=== PATIENT | female | born 1950 ===

== ENCOUNTER 2018-03-17 02:06 | Outpatient (CLI) | payer MEDICARE, BC, SELFPAY ==
[2018-03-17 13:16] LABS: CREATININE 0.72 mg/dL (0.55-1.02)
== END 2018-03-17 02:26 ==
PROVIDERS: PCP Internal Medicine; Visit Provider Nurse Practitioner Family
DX: D15.0 Benign neoplasm of thymus (principal); Z13.89 Encounter for screening for other disorder
CPT/HCPCS: 36415; 82565

== ENCOUNTER 2018-03-20 00:21 | Outpatient (CLI) | payer MEDICARE, BC, SELFPAY ==
--- NOTE | 2018-03-20 13:45 | DI.MAMMO_ITS ---
SYMPTOMS/DIAGNOSIS: SCREENING, Z12.31 MAMMOGRAMS: Mammograms were interpreted according to the usual protocol including computer analysis with CAD system, tomosynthesis and C view imaging. Comparison is with the prior examinations. No suspicious masses or microcalcifications are seen. There is no definite evidence of malignancy. IMPRESSION: Negative mammogram. Routine screening is recommended. Category 1, breast density C. MQSA ASSESSMENT OF FINDINGS: Negative. Category 1. Patient will receive a letter notifying them of these results. Bi-RADS category C. The breasts are heterogeneously dense, which may obscure small masses.
--- NOTE | 2018-03-20 15:00 | DI.CT_ITS ---
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 The requisition says ? thymoma. 70 cc Omnipaque 350 was injected intravenously for this examination. The lungs remain clear. There is no pleural effusion. There is no evidence of a pulmonary, hilar or mediastinal mass specifically the anterior mediastinum where the thymus is usually located, appears unremarkable as it did on the prior study of 03/14/2017. The heart is normal. There is no pleural effusion. There is no hilar or mediastinal adenopathy. The trachea is normal as visualized. There is no evidence of a mediastinal mass. The bony structures are unremarkable. SUMMARY: No interval change. No evidence of a mass involving the mediastinum. No evidence of adenopathy. If there is further specific clinical question regarding the status of this patient then further assessment with MRI would be appropriate.
[2018-03-20] MEDS: Omnipaque 350 MG/ML 100 ML BTL IJ (15:04)
== END 2018-03-20 00:41 ==
PROVIDERS: PCP Internal Medicine; Visit Provider Nurse Practitioner Family
DX: Z12.31 Encounter for screening mammogram for malignant neoplasm of breast (principal); D15.0 Benign neoplasm of thymus
CPT/HCPCS: 77063; 77067; 71260; J3490

== ENCOUNTER 2019-02-15 12:45 | Outpatient (CLI) | payer MEDICARE, BC, SELFPAY ==
--- NOTE | 2019-02-15 14:00 | DI.RAD_ITS ---
EXAM: XR CHEST 2V PA AND LATERAL INDICATION: COUGH X 3 WEEKS, R05. COMPARISON: CT chest w from 03/20/2018 CT chest w from 03/20/2018 TECHNIQUE: 2D digital imaging was performed. FINDINGS: The cardiac and mediastinal contours have a normal appearance. Lungs appear clear throughout. No inf iltrate or effusion is seen. IMPRESSION: Negative chest x-ray.
== END 2019-02-15 13:05 ==
PROVIDERS: PCP Internal Medicine; Visit Provider Nurse Practitioner Family
DX: R05 Cough (principal)
CPT/HCPCS: 71046

== ENCOUNTER 2019-03-13 16:05 | Outpatient (REF) | payer MEDICARE, BC, SELFPAY ==
[2019-03-13 21:12] LABS: CREATININE 0.83 mg/dL (0.55-1.02); Calculated LDL 169 mg/dL; Cholesterol 267 mg/dL (<200); HDL Cholesterol 73 mg/dL (40-60); TSH (W/Ref FT4) 1.22 uIU/mL (0.36-3.74); Triglyceride 129 mg/dL (<150)
[2019-03-13 21:49] LABS: Abs Immature Grans 0.01 k/cumm (0.0-0.09); Absolute Basophil Count 0.04 k/cumm (0.0-0.2); Absolute Eosinophil Count 0.23 k/cumm (0.0-0.7); Absolute Lymphocyte Count 2.77 k/cumm (1.2-3.4); Absolute Monocyte Count 0.62 k/cumm (0.11-0.7); Basophils % 0.4; Eosinophils % 2.3; HCT 41.1 % (36.0-46.0); HGB 13.8 g/dL (12.0-15.5); Immature Grans % 0.1; Lymphocytes % 28.1; Mean Corp. HGB Concentration 33.6 g/dL (32.0-36.0); Mean Corpuscular Hemoglobin 30.6 pg (27.0-33.0); Mean Corpuscular Volume 91.1 fL (80-95); Mean Platelet Volume 9.6 fL (8.0-11.0); Monocytes % 6.3; Neutrophils % 62.8; Platelet Count 373 x1000/uL (130-400); RBC 4.51 m/cumm (4.00-5.20); RBC Distribution Width 13.3 % (11.7-14.6); White Blood Cell Count 9.87 k/cumm (4.4-10.8)
== END 2019-03-13 16:25 ==
LOC: NCHCN 16:05
PROVIDERS: PCP Internal Medicine; Visit Provider Nurse Practitioner Family
DX: F41.8 Other specified anxiety disorders (principal); E66.9 Obesity, unspecified; K30 Functional dyspepsia
CPT/HCPCS: 80061; 82565; 84443; 85025

== ENCOUNTER 2019-03-23 02:15 | Outpatient (CLI) | payer MEDICARE, BC, SELFPAY ==
--- NOTE | 2019-03-23 08:55 | DI.CT_ITS ---
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 COMPARISON: CHEST WITH CONTRAST from 03/14/2017 CT chest w from 03/20/2018 FINDINGS: Images obtained through the upper abdomen show unremarkable appearance of visualized portions of [place] er, spleen and pancreas. Gallbladder has been surgically removed. No biliary dilatation seen. Visuali zed adrenals and left kidney unremarkable. There is no evidence of pulmonary embolic disease. No thoracic aortic abnormality. No significant med iastinal or hilar adenopathy. Tracheobronchial tree is unremarkable. No pleural effusion. There are 2 nodules associated with the minor fissure on the right, the largest measuring about 6 mil limeters mean diameter. Prior chest CT of March 2018 did show this pulmonary nodule but it was not well visualized on that examination and probably measured about 6 by 3-4 millimeters in diameter. Si x-month follow-up chest CT suggested to evaluate stability and rule out neoplasm according to [employer] protocol. Note is also made of a tiny calcified right middle lobe nodule. The patient requested that her sternum be evaluated and there is no abnormality seen involving the st ernum or anterior ribs. 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 IMPRESSION: 1.No mediastinal mass. No sternal mass. 2. Noncalcified nodules are seen associated with the right minor fissure and a follow-up chest CT is recommended in 6 months to evaluate stability as described above.
[2019-03-23] MEDS: Omnipaque 350 MG/ML 100 ML BTL IJ (09:13)
== END 2019-03-23 02:35 ==
PROVIDERS: PCP Internal Medicine; Visit Provider Nurse Practitioner Family
DX: D15.0 Benign neoplasm of thymus (principal); J98.4 Other disorders of lung
CPT/HCPCS: 71260; J3490

== ENCOUNTER 2019-04-05 13:39 | Outpatient (REF) | payer MEDICARE, BC, SELFPAY | END 2019-04-05 13:59 | LOC: NCHCN 13:39 | PROVIDERS: PCP Internal Medicine; Visit Provider Nurse Practitioner Family | DX: D15.0 Benign neoplasm of thymus (principal); R13.10 Dysphagia, unspecified; J98.4 Other disorders of lung | CPT/HCPCS: 83519 ==

== ENCOUNTER 2019-04-12 01:26 | Outpatient (CLI) | payer MEDICARE, BC, SELFPAY ==
--- NOTE | 2019-04-12 13:04 | DI.MAMMO_ITS ---
EXAM: MG MAMMO SCREENING CLINICAL HISTORY: SCREENING Z12.31 TECHNIQUE: Mammograms were interpreted according to the usual protocol including computer analysis w [place] CAD system, tomosynthesis and C-view imaging. COMPARISON: Current examination is compared with previous examinations including March 2018 FINDINGS: Breasts are heterogeneously dense. No dominant mass or clumped microcalcification identified in [facility] breast. The current examination is compared with previous examinations including March 2018 an d there has been no significant interval change in appearance in comparison with previous studies. IMPRESSION: No specific evidence of malignancy at this time. Routine screening examinations are suggested at yea rly intervals in this age group according to the ACS/ACR guidelines. Category 1, breast density josephine sonaly C. BI-RADS Cat 1 - Negative Breast Density - Category C - Heterogeneously dense
== END 2019-04-12 01:46 ==
PROVIDERS: PCP Internal Medicine; Visit Provider Nurse Practitioner Family
DX: Z12.31 Encounter for screening mammogram for malignant neoplasm of breast (principal)
CPT/HCPCS: 77063; 77067

== ENCOUNTER 2019-08-01 17:08 | Emergency (ER) | payer MEDICARE, BC, SELFPAY | END 2019-08-03 04:00 | LOC: ER 17:19 | PROVIDERS: PCP Internal Medicine | DX: R69 Illness, unspecified (principal) ==

== ENCOUNTER 2019-08-01 17:11 | Observation (INO) | payer MEDICARE, BC, SELFPAY ==
[2019-08-01] VITALS (44 sets, daily range): BP systolic 136–161; BP diastolic 77–102; PULSE 82–113; RESP 11–25; TEMP 36.5–37.1; O2SAT 94–98
--- NOTE | 2019-08-01 17:15 | ED.GENADUL_ITS ---
Discharge Plan Disposition Patient Disposition: [facility] INPATIENT Condition: Poor Discharge Details Chief Complaint: AMS/LOC Clinical Impression: Altered mental status Primary Care Provider: Quan Stewart ED Provider: Yenni Lugo Home Meds and New Rx's Prescriptions: No Action trazodone 50 MG tablet 50 mg PO HS RF: 0 omeprazole 40 MG capsule,delayed release(DR/EC) 40 mg PO DAILY RF: 0 Zyrtec 10 MG capsule 10 mg PO HS RF: 0 naproxen sodium [Aleve] 220 MG capsule 660 mg PO BID PRNRF: 0 estradiol [Vagifem] 10 MCG tablet 10 mcg VG HS Qty: 24 RF: 6 Medical Decision Making <Servando Chatterjee DO - Last Filed: 08/01/19 18:19> EKG 17: 26 Rate 108, intervals normal, mild sinus tachycardia, minimal less than a millimeter ST depression in V3 and V4, no reciprocal elevations. No evidence of STEMI. Prior EKG from demonstrates that these are new findings. <JL Armendariz - Last Filed: 08/01/19 22:47> Patient is a pleasant 69-year-old female with past medical history of chronic cough, hiatal hernia. She is brought in by her for evaluation of altered mental status. reports around 1 PM they were working in the yard. He states that there hold her dog escape to begin running down the road. The patient subsequently went off of the dog. He describes her at a brisk walk. She did not fall or have any evidence of trauma. He reports that he she walked approximately quarter of a mile. It was after returning home with a dog that he began noticing altered mental status. States that she was repeating herself frequently. He describes memory loss. States that she seem to be suffering from short-term memory loss not remembering packages that had arrived today as well as being confused regarding long-term events. denies any recent medication changes. No alcohol intake. No [id number] medications used. No recent trauma. No history of seizures. Patient has not been evaluated by neurology historically per report. He denies any recent illness. No cough, fevers, chills. He denies endorsing any headaches or visual changes. Had not noticed any physical illness, deficits. On exam, patient appears nontoxic. Vital signs notable for tachycardia with a pulse of 103. She is notably confused with frequent repeating. She is oriented to person and place but not to time. Her neurologic exam is otherwise intact. Of note, she has normal [id number]-[id number], normal Romberg, normal strength, no cranial nerve deficits. She is full range of motion of her neck without any discomfort. She has no evidence of trauma. No pain to palpation about her head. No nuchal rigidity, no rash, appears nontoxic. Plan for imaging and laboratory evaluation. Imaging reviewed by radiologist: FINDINGS: Brain: No hemorrhage. No large vascular territory infarct. No mass effect. Ventricles: Normal. No ventriculomegaly. Bones/joints: Unremarkable. No acute fracture. Sinuses: Trace mucosal thickening of the right sphenoid sinus. Visualized sinuses are otherwise unremarkable. No fluid levels. Mastoid air cells: Visualized mastoid air cells are well aerated. Soft tissues: Unremarkable. IMPRESSION: No acute intracranial abnormality. CXR: FINDINGS: Lungs: Unremarkable. No consolidation. Pleural space: Unremarkable. No pleural effusion. No pneumothorax. Heart/Mediastinum: Unremarkable. No cardiomegaly. Bones/joints: Unremarkable. IMPRESSION: No acute findings. EKG was reviewed by Dr. Chatterjee. Please see his note regarding findings. Labs are reviewed. No leukocytosis. Normal CBC. Normal coagulation factors. Chemistry significant for mildly elevated glucose of 116. ammonia is less than 10. Initial troponin 0 0.05. TSH within normal limits. Urinalysis, UDS and VBG pending. Plan for CTA of head and neck. Plan for repeat troponin and ECG. UDS negative CTA reviewed by radiologist:. FINDINGS: Right common carotid artery: No stenosis. No dissection or occlusion. Right internal carotid artery: No stenosis of the extracranial segment. No dissection or occlusion. Right external carotid artery: No occlusion or stenosis of the origin. Right vertebral artery: No stenosis. No dissection or occlusion. Left common carotid artery: No stenosis. No dissection or occlusion. Left internal carotid artery: No stenosis of the extracranial segment. No dissection or occlusion. Left external carotid artery: No occlusion or stenosis of the origin. Left vertebral artery: No stenosis. No dissection or occlusion. Bones/joints: Degenerative changes of the cervical spine with multilevel bony spinal canal or neural foraminal stenosis. Soft tissues: Normal. No significant soft tissue swelling. Lungs: The visualized portions of the lung apices are normal. IMPRESSION: Tortuous cervical arteries are otherwise normal in caliber and appearance without flow-limiting stenosis or occlusion. Patient continues to be pleasant, very confused, comfortable. Called , Jordan, (cell), and let him know about the findings thus far. He is now reporting that her migraines, which he states she has had for years, have been increasing in frequency recently. Patient endorsing a mild headache, will give Tylenol for discomfort. Repeat ECG reviewed by Dr. Mcdaniels. Patient in NSR rate 95. No changes from previous. Repeat troponin 0.06. Considered LP, however, as the patients only deficit at this time is her confusion, she does not have symptoms suggestive of bleed or infection will hold off at this time. Will consult with hospitalist regarding admission for c onfusion. Dr. Davis evaluated the patient. She does appear to be slightly improved. She still does not remember meeting me but does know the year this time. He agrees to admission for persistent memory deficit. Discussed plan with patient , they agree with this. HPI <Servando Chatterjee DO - Last Filed: 08/01/19 18:19> General Date/Time Provider Initiated Documentation: 08/01/19 17:15 . Related Data Home Medications Medication Instructions Recorded Confirmed cetirizine [Zyrtec] 10 mg PO HS 12/31/15 08/01/19 omeprazole 40 mg PO DAILY tab-cap 12/31/15 08/01/19 trazodone 50 mg PO HS 12/31/15 08/01/19 naproxen sodium [Aleve] 660 mg PO BID PRN 01/13/16 08/01/19 estradiol [Vagifem] 10 mcg VG HS #24 tab 09/22/16 08/01/19 Allergies Allergy/AdvReac Type Severity Reaction Status Date / Time epinephrine AdvReac Severe Bradycardia Unverified 08/01/19 19:07 <JL Armendariz - Last Filed: 08/01/19 22:47> General Mode of arrival: ambulatory ( drove her in, she ambulated into department unassisted) . Limitations to Documentation: altered mental status . Information obtained by: patient, family () and RN notes reviewed . HPI Narrative: Patient is a pleasant 69 year old female presenting today with c/c of AMS. reports that at 1300 patient became suddenly confused. This is not her baseline, he reports no confusion at baseline. Came on after patient chased after her dog. No known trauma. No neurologic history per report. At this time, patient reports she feels off and associates this iwth feeling of confusion. She denies any pain, nausea, CP, SOB, visual changes, weakness, senstation changes. <JL Armendariz - Last Filed: 08/01/19 22:47> Unobtainable due to mental status [facility] <Servando Chatterjee DO - Last Filed: 08/01/19 18:19> Social History Smoking/Tobacco Use Status: Never Alcohol Intake: current Alcohol Intake frequency: holidays/special occasions only Drug use: Never Do you feel safe at home: Yes Do you feel safe in your relationship?: Yes <JL Armendariz - Last Filed: 08/01/19 22:47> Const General: cooperative, healthy appearing, uncomfortable, no acute distress, well developed and well groomed Nutritional Appearance: average body habitus and well nourished Orientation: alert, awake, oriented to person, oriented to place, not oriented to time and confused HENNE Head: normal to inspection, no palpable skull fracture, normocephalic and atraumatic Ears: hearing grossly normal bilaterally, external ears normal and TM's normal bilaterally General nose exam: external nose normal Mouth: oral mucosae normal and moist mucous membranes Throat: posterior oropharynx normal Eyes General: appearance normal, both eyes and all related structures Alignment and Position: alignment normal Periorbital: periorbital findings normal Eyelids: eyelids normal Sclera: sclerae normal Cornea: corneas normal Pupils: PERRL EOM: EOM intact bilaterally Neck Neck: normal visual inspection, full ROM, no lymphadenopathy and no meningeal signs Resp Effort & Inspection: normal respiratory effort, able to speak in complete sentences and no respiratory distress Auscultation: clear to auscultation bilaterally, no rales, no rhonchi and no wheezes Cardio Rate: regular rate Rhythm: regular rhythm Heart Sounds: S1 normal and S2 normal GI Inspection: normal to inspection and non-distended Palpation: soft, no hepatosplenomegaly, not firm, no guarding, not rigid and nontender Percussion: normal to percussion Auscultation: normal bowel sounds Back/Spine/Pelvis Cervical Spine: normal cervical lordosis and cervical ROM normal Skin General skin exam: no rashes or lesions noted Neuro General: patient alert, patient awake, oriented Patient Orientation: Person and Place, gait normal, tone normal, moves all extremities, normal light touch, pain and propioception, no meningeal signs, no focal motor deficits and CN's II-XI intact bilaterally Cranial Nerves: CN's II-XI intact bilaterally Cognition: normal cognition Speech: speech normal Gait: normal gait Motor: muscle tone normal throughout, strength 5/5 throughout, no pronator drift, no movement abnormalities noted and no fasciculations Sensory Exam: no sensory deficits noted DTR's: Rt Triceps: 1+, Lt Triceps: 1+, Rt Biceps: 1+, Lt Biceps: 1+, Rt Brachioradialis: 1+, Lt Brachioradialis: 1+, Rt Patellar: 1+, Lt Patellar: 1+, Rt Ankle: 1+ and Lt Ankle: 1+ Coordination: [id number]-hd-[id number] test normal, tepi-lf-jroi test normal, Romberg test normal, tandem gait normal and Does not sway with eyes open Extrem General: normal to inspection, capillary refill normal, no pedal edema and no calf tenderness Psych Appearance: grossly normal and well kempt Mental Status: mental status grossly normal Speech and Movement: speech and movement normal
[2019-08-01 17:45] LABS: Abs Immature Grans 0.02 k/cumm (0.0-0.09); Absolute Basophil Count 0.04 k/cumm (0.0-0.2); Absolute Eosinophil Count 0.06 k/cumm (0.0-0.7); Absolute Lymphocyte Count 1.96 k/cumm (1.2-3.4); Absolute Monocyte Count 0.45 k/cumm (0.11-0.7); Absolute Neutrophil Count 6.82 k/cumm (1.2-6.7); Basophils % 0.4; Eosinophils % 0.6; HCT 41.7 % (36.0-46.0); HGB 14.1 g/dL (12.0-15.5); Immature Grans % 0.2 %; Mean Corp. HGB Concentration 33.8 g/dL (32.0-36.0); Mean Corpuscular Hemoglobin 29.6 pg (27.0-33.0); Mean Corpuscular Volume 87.6 fL (80-95); Mean Platelet Volume 8.9 fL (8.0-11.0); Monocytes % 4.8; Platelet Count 323 x1000/uL (130-400); RBC 4.76 m/cumm (4.00-5.20); RBC Distribution Width 13.3 % (11.7-14.6); White Blood Cell Count 9.35 k/cumm (4.4-10.8)
--- NOTE | 2019-08-01 17:50 | DI.CT_ITS ---
EXAM: CT HEAD - STROKE PROTOCOL CLINICAL HISTORY: AMS. TECHNIQUE: Imaging Protocol: Axial computed tomography images with coronal and sagittal reformatted images were created and reviewed COMPARISON: No exams were available for comparison FINDINGS: The ventricular system is normal in appearance. No evidence of acute intracranial hemorrhage, mass effect, or midline shift. The orbital structures are unremarkable. The temporal bone structures appear intact. Calvarium: Normal. Visualized Paranasal sinuses/Mastoids: Clear. IMPRESSION: Normal cranial CT. RADIATION DOSE DELIVERED: Total DLP DATA REPOSITORY: All CT scans at this facility are submitted to the National Radiology Data Registry (NRDR) Dose Index Registry (DIR) with the [employer] (ACR). RADIATION OPTIMIZATION: All CT scans at this facility use at least one of these dose optimization te chniques: automated exposure control; mA and/or kV adjustment per patient size (includes targeted exa ms where dose is matched to clinical indication); or iterative reconstruction.
--- NOTE | 2019-08-01 17:52 | DI.RAD_ITS ---
EXAM: XR CHEST 2V PA LATERAL CLINICAL HISTORY: AMS TECHNIQUE: 2D digital imaging was performed. COMPARISON: XR CHEST 2V PA LATERAL from 02/15/2019 FINDINGS: The heart is not enlarged. The lungs are clear and well expanded. No pleural effusion seen. Mediastin al contours appear intact. IMPRESSION: Normal chest
[2019-08-01 17:54] LABS: Prothrombin Time 9.6 sec (9.3-11.0)
--- NOTE | 2019-08-01 18:00 | DI.CT_ITS ---
EXAM: CT BRAIN NECK CTA CLINICAL HISTORY: AMS TECHNIQUE: COMPARISON: CHEST FOR PULMONARY EMBOLUS from 02/14/2015 FINDINGS: CT angiography of the cervical cranial region was performed according to the usual protocol. Visuali zed lung apices are clear. Visualized portions of thoracic aorta and pulmonary arterial circulation are unremarkable. There is no evidence of a cervical mass or adenopathy. The tracheal laryngeal str uctures appear intact. The common, internal, and external carotid arteries are within normal limits in the cervical region w ith no evidence of aneurysm, stenosis, or dissection. The vertebral arteries are unremarkable in appearance in the cervical region with no evidence of aneu rysm, stenosis, or dissection. Intracranial portions of the internal carotid arteries appear normal with no evidence of aneurysm, st enosis, or dissection. Intracranial vertebral arteries and basilar artery appear normal with no evidence of aneurysm, stenos is or dissection. No aneurysm identified in the region of the [id number]. The anterior, middle, and posterior ce rebral arteries and major branches appear intact with no evidence of aneurysm, stenosis, or dissectio n. No enhancing brain lesion identified. IMPRESSION: Negative CT angiography of the cervical cranial region.
--- NOTE | 2019-08-01 18:00 | DI.VRAD_ITS ---
PROCEDURE INFORMATION: Exam: CT Head Without Contrast Exam date and time: 08/01/2019 5:32 PM Age: 69 years old Clinical indication: Weakness, extremity; Right; Patient HX: AMS TECHNIQUE: Imaging protocol: Computed tomography of the head without contrast. Radiation optimization: All CT scans at this facility use at least one of these dose optimization techniques: automated exposure control; mA and/or kV adjustment per patient size (includes targeted exams where dose is matched to clinical indication); or iterative reconstruction. Other technique: STROKE PROTOCOL was implemented. COMPARISON: No relevant prior studies available. FINDINGS: Brain: No hemorrhage. No large vascular territory infarct. No mass effect. Ventricles: Normal. No ventriculomegaly. Bones/joints: Unremarkable. No acute fracture. Sinuses: Trace mucosal thickening of the right sphenoid sinus. Visualized sinuses are otherwise unremarkable. No fluid levels. Mastoid air cells: Visualized mastoid air cells are well aerated. Soft tissues: Unremarkable. IMPRESSION: No acute intracranial abnormality. ASSESSMENT: ASPECTS ([place] Stroke Program Early CT Score) is 10. Dictated and Authenticated by: Nitesh Alvarez MD. Ordering:TREVOR Hyman MD
--- NOTE | 2019-08-01 18:01 | DI.VRAD_ITS ---
PROCEDURE INFORMATION: Exam: XR Chest, 2 Views Exam date and time: 08/01/2019 5:54 PM Age: 69 years old Clinical indication: Other: AMS TECHNIQUE: Imaging protocol: XR of the chest Views: 2 views. COMPARISON: No relevant prior studies available. FINDINGS: Lungs: Unremarkable. No consolidation. Pleural space: Unremarkable. No pleural effusion. No pneumothorax. Heart/Mediastinum: Unremarkable. No cardiomegaly. Bones/joints: Unremarkable. IMPRESSION: No acute findings. Dictated and Authenticated by: Nitesh Alvarez MD. Ordering:TREVOR Hyman MD
[2019-08-01 18:02] LABS: ALT 23 U/L (14-59); AST 18 U/L (15-37); Albumin 3.8 g/dL (3.4-5.0); Alkaline Phosphatase 77 U/L (46-116); Anion Gap 7.7 mmol/L (3-11); BUN 14 mg/dL (7-18); Bilirubin, Total 0.7 mg/dL (0.2-1.0); CO2 26.3 mmol/L (21.0-32.0); CREATININE 0.94 mg/dL (0.55-1.02); Calcium 9.6 mg/dL (8.5-10.1); Chloride 103 mmol/L (98-107); Estimated GFR 59.04 (mL/min/1.73m2); Glucose 116 mg/dL (74-106); Magnesium 1.9 mg/dL (1.8-2.4); Potassium 3.7 mmol/L (3.5-5.1); Sodium 137 mmol/L (136-145); Total Protein 7.3 g/dL (6.4-8.2); Troponin I 0.05 ng/Ml (<0.06)
[2019-08-01 18:07] LABS: Ammonia < 10 umol/L (11-32)
[2019-08-01] MEDS: Omnipaque 350 MG/ML 100 ML BTL IJ (18:07)
[2019-08-01 18:32] LABS: Bilirubin Negative (Negative); Blood Trace-lysed (Negative); Clarity Clear (Clear); Glucose Negative (Negative); Ketones 15 mg/dL (Negative); Leukocyte Esterase Negative (Negative); Nitrite Negative (Negative); Specific Gravity 1.015 (1.005-1.025); Urobilinogen 0.2 EU/dL (Up TO 0.2)
[2019-08-01] MEDS: Normal Saline 1,000 ML 125 ML IV (18:36)
[2019-08-01 18:40] LABS: *AMPHETAMINES SCREEN URINE Negative (Negative); *BARBITURATES SCREEN URINE Negative (Negative); *BENZODIAZEPINES SCREEN URINE Negative (Negative); Cannabinoids THC Negative (Negative); Cocaine Screen,Urine Negative (Negative); METHADONE URINE SCREEN Negative (Negative)
[2019-08-01 18:50] LABS: Tricyclic Antidepressants Negative (Negative)
--- NOTE | 2019-08-01 19:01 | DI.VRAD_ITS ---
PROCEDURE INFORMATION: Exam: CT Angiography Head With Contrast Exam date and time: 08/01/2019 6:01 PM Age: 69 years old Clinical indication: Patient HX: AMS, right sided arm weakness. TECHNIQUE: Imaging protocol: Computed tomography angiography of the head with intravenous contrast. 3D rendering: MIP and/or 3D reconstructed images were created by the technologist. Contrast material: OMNIPAQUE 350; Contrast volume: 85 ml; Contrast route: IV; COMPARISON: CT HEAD - STROKE PROTOCOL 08/01/2019 5:48 PM FINDINGS: Right internal carotid artery: Intracranial segment is patent with no significant stenosis or occlusion. No aneurysm. Right anterior cerebral artery: No occlusion or significant stenosis. No aneurysm. Right middle cerebral artery: No occlusion or significant stenosis. No aneurysm. Right posterior cerebral artery: No occlusion or significant stenosis. No aneurysm. Right vertebral artery: No occlusion or significant stenosis. No aneurysm. Left internal carotid artery: Intracranial segment is patent with no significant stenosis or occlusion. No aneurysm. Left anterior cerebral artery: No occlusion or significant stenosis. No aneurysm. Left middle cerebral artery: No occlusion or significant stenosis. No aneurysm. Left posterior cerebral artery: No occlusion or significant stenosis. No aneurysm. Left vertebral artery: No occlusion or significant stenosis. No aneurysm. Basilar artery: No occlusion or significant stenosis. No aneurysm. Dural sinuses/cerebral veins: Dural venous sinuses are patent. IMPRESSION: Normal caliber and appearance of the intracranial arteries. PROCEDURE INFORMATION: Exam: CT Angiography Neck With Contrast Exam date and time: 08/01/2019 6:01 PM Age: 69 years old Clinical indication: Patient HX: AMS, right sided arm weakness. TECHNIQUE: Imaging protocol: Computed tomography angiography of the neck with intravenous contrast. 3D rendering: MIP and/or 3D reconstructed images were created by the technologist. Radiation optimization: All CT scans at this facility use at least one of these dose optimization techniques: automated exposure control; mA and/or kV adjustment per patient size (includes targeted exams where dose is matched to clinical indication); or iterative reconstruction. COMPARISON: CT HEAD - STROKE PROTOCOL 08/01/2019 5:48 PM FINDINGS: Right common carotid artery: No stenosis. No dissection or occlusion. Right internal carotid artery: No stenosis of the extracranial segment. No dissection or occlusion. Right external carotid artery: No occlusion or stenosis of the origin. Right vertebral artery: No stenosis. No dissection or occlusion. Left common carotid artery: No stenosis. No dissection or occlusion. Left internal carotid artery: No stenosis of the extracranial segment. No dissection or occlusion. Left external carotid artery: No occlusion or stenosis of the origin. Left vertebral artery: No stenosis. No dissection or occlusion. Bones/joints: Degenerative changes of the cervical spine with multilevel bony spinal canal or neural foraminal stenosis. Soft tissues: Normal. No significant soft tissue swelling. Lungs: The visualized portions of the lung apices are normal. IMPRESSION: Tortuous cervical arteries are otherwise normal in caliber and appearance without flow-limiting stenosis or occlusion. REFERENCES: NASCET CRITERIA. The degree of internal carotid artery stenosis is based on NASCET criteria. Normal is no stenosis. Mild is less than 50% stenosis. Moderate is 50-69% stenosis. Severe is 70% to 99% stenosis. Total occlusion is no detectable patent lumen. Dictated and Authenticated by: Nitesh Alvarez MD. Ordering:TREVOR Hyman MD
[2019-08-01 19:04] LABS: HCO3 (Venous) 26 mmol/L (22-28); O2 Sat (Venous) 64 % (70-80); TCO2 (Venous) 24 mmol/L (22-29); pCO2 (Venous) 45 mm/Hg (34-47); pH (Venous) 7.38 (7.35-7.45); pO2 (Venous) 33 mm/Hg (28-44)
[2019-08-01 19:13] LABS: Bacteria Negative HPF (Negative); C & S Indicated? No; Casts Negative LPF (Negative); Crystals Negative HPF (Negative); Epithelial Cells Negative HPF (Negative); Mucus Negative (Negative); Other Cells Negative (Negative); RBC Negative HPF (0-2); WBC Negative HPF (0-5)
[2019-08-01 19:18] LABS: OPIATES URINE SCREEN Negative (Negative)
--- NOTE | 2019-08-01 20:02 | NUR.NOTE ---
Amb to BR with steady gait. Pt reports POSEY, States feels like her BS is low. FSBS 113.
[2019-08-01] MEDS: Acetaminophen 500 MG TAB 1000 MG PO (20:58)
[2019-08-01 21:12] LABS: Troponin I 0.06 ng/Ml (<0.06)
--- NOTE | 2019-08-01 21:50 | HPE_ITS ---
Date of service: 08/01/19 Time of Service: 21:51 Assessment and Plan Assessment and plan (1) Altered mental status: Status: Acute Assessment and plan: AMS, manifesting primarily as acute short term and retrograde memory loss. Possible stroke, or TGA; possible concussion to unwitnessed trauma. Will watch overnight, give empiric dose aspirin, and monitor for occult PAF. History of Present Illness History of Present Illness Chief Complaint: confusion Narrative: 69 female he re with more or less acute confusion and memory loss, coming on after she went chasing after her dog who got loose. In ER described as having poor short term memory, retrograde amnesia for events of today and frequent repetition. At time of my visit ER staff confirms that patient is noticeably improved. W/u entirely negative, including CT head, CTA and CBC, chemistries and U/A. Admitted for further evaluation. Denies head trauma. No POSEY, nausea, change in vision, language or lateralizing motor or sensory symptoms Review of Systems All systems reviewed & are unremarkable except as noted in HPI and below PFSH Social History Smoking/Tobacco Use Status: Never Alcohol Intake: current Alcohol Intake frequency: holidays/special occasions only Drug use: Never Do you feel safe at home: Yes Do you feel safe in your relationship?: Yes Meds Home Medications and Allergies Home Medications Medication Instructions Recorded Confirmed Type cetirizine [Zyrtec] 10 mg PO HS 12/31/15 08/01/19 History omeprazole 40 mg PO DAILY tab-cap 12/31/15 08/01/19 History trazodone 50 mg PO HS 12/31/15 08/01/19 History naproxen sodium [Aleve] 660 mg PO BID PRN 01/13/16 08/01/19 History estradiol [Vagifem] 10 mcg VG HS #24 tab 09/22/16 08/01/19 History Allergies Allergy/AdvReac Type Severity Reaction Status Date / Time epinephrine AdvReac Severe Bradycardia Unverified 08/01/19 19:07 Exam Narrative Exam Narrative: 150/92, 99, 36.5, 16, 97% RA. JHEENT no head trauma; neck supple, w/o bruit; lungs clear; heart RRR w/o MRG; abdomen soft and NT; extremities w/o edema, pulse 2+/=; neuro: Ox person and place; knows 2019 but not month, does not know President; 2/3 objects recalled at 5'. EOMI, fileds full, no facial assymettry, motor 5/5 sensory intact touch, toes downgoing Results Labs Result diagrams: 08/01/19 17:30 08/01/19 17:30 Labs: Laboratory Results - last 24 hr 08/01/19 08/01/19 08/01/19 17:30 17:30 17:30 WBC RBC Hgb Hct MCV MCH MCHC RDW Plt Count MPV Immature Gran % Neutrophils % Lymphocytes % Monocytes % Eosinophils % Basophils % Absolute Neutrophils Absolute Lymphocytes Absolute Monocytes Absolute Eosinophils Absolute Basophils PT 9.6 INR 1.0 VBG pH VBG pCO2 VBG pO2 VBG HCO3 VBG Total CO2 VBG O2 Saturation VBG Base Excess Sodium Potassium Chloride Carbon Dioxide Anion Gap BUN Creatinine Estimated GFR/1.73 m2 Glucose Calcium Magnesium Total Bilirubin AST ALT Alkaline Phosphatase Ammonia < 10 L Troponin I Total Protein Albumin TSH 1.20 Urine Color Urine Clarity Urine pH Ur Specific [place] Urine Protein Urine Ketones Urine Blood Urine Nitrite Urine Bilirubin Urine Urobilinogen Ur Leukocyte Esterase Urine RBC Urine WBC Ur Epithelial Cells Urine Crystals Urine Bacteria Urine Casts Urine Mucus Urine Other Ur Culture Indicated? Urine Glucose Urine Opiates Screen Urine Methadone Screen Ur Barbiturates Screen Ur Tricyclics Screen Ur Amphetamines Screen U Benzodiazepines Scrn Urine Cocaine Screen Ur THC Screen 08/01/19 08/01/19 08/01/19 17:30 17:30 17:58 WBC 9.35 RBC 4.76 Hgb 14.1 Hct 41.7 MCV 87.6 MCH 29.6 MCHC 33.8 RDW 13.3 Plt Count 323 MPV 8.9 Immature Gran % 0.2 Neutrophils % 73.0 Lymphocytes % 21.0 Monocytes % 4.8 Eosinophils % 0.6 Basophils % 0.4 Absolute Neutrophils 6.82 H Absolute Lymphocytes 1.96 Absolute Monocytes 0.45 Absolute Eosinophils 0.06 Absolute Basophils 0.04 PT INR VBG pH VBG pCO2 VBG pO2 VBG HCO3 VBG Total CO2 VBG O2 Saturation VBG Base Excess Sodium 137 Potassium 3.7 Chloride 103 Carbon Dioxide 26.3 Anion Gap 7.7 BUN 14 Creatinine 0.94 Estimated GFR/1.73 m2 59.04 Glucose 116 H Calcium 9.6 Magnesium 1.9 Total Bilirubin 0.7 AST 18 ALT 23 Alkaline Phosphatase 77 Ammonia Troponin I 0.05 Total Protein 7.3 Albumin 3.8 TSH Urine Color Yellow Urine Clarity Clear Urine pH 5.0 Ur Specific [place] 1.015 Urine Protein Negative Urine Ketones 15 H Urine Blood Trace-lysed H Urine Nitrite Negative Urine Bilirubin Negative Urine Urobilinogen 0.2 Ur Leukocyte Esterase Negative Urine RBC Negative Urine WBC Negative Ur Epithelial Cells Negative Urine Crystals Negative Urine Bacteria Negative Urine Casts Negative Urine Mucus Negative Urine Other Negative Ur Culture Indicated? No Urine Glucose Negative Urine Opiates Screen Urine Methadone Screen Ur Barbiturates Screen Ur Tricyclics Screen Ur Amphetamines Screen U Benzodiazepines Scrn Urine Cocaine Screen Ur THC Screen 08/01/19 08/01/19 08/01/19 17:58 18:50 20:30 WBC RBC Hgb Hct MCV MCH MCHC RDW Plt Count MPV Immature Gran % Neutrophils % Lymphocytes % Monocytes % Eosinophils % Basophils % Absolute Neutrophils Absolute Lymphocytes Absolute Monocytes Absolute Eosinophils Absolute Basophils PT INR VBG pH 7.38 VBG pCO2 45 VBG pO2 33 VBG HCO3 26 VBG Total CO2 24 VBG O2 Saturation 64 L VBG Base Excess 1.0 Sodium Potassium Chloride Carbon Dioxide Anion Gap BUN Creatinine Estimated GFR/1.73 m2 Glucose Calcium Magnesium Total Bilirubin AST ALT Alkaline Phosphatase Ammonia Troponin I 0.06 Total Protein Albumin TSH Urine Color Urine Clarity Urine pH Ur Specific [place] Urine Protein Urine Ketones Urine Blood Urine Nitrite Urine Bilirubin Urine Urobilinogen Ur Leukocyte Esterase Urine RBC Urine WBC Ur Epithelial Cells Urine Crystals Urine Bacteria Urine Casts Urine Mucus Urine Other Ur Culture Indicated? Urine Glucose Urine Opiates Screen Negative Urine Methadone Screen Negative Ur Barbiturates Screen Negative Ur Tricyclics Screen Negative Ur Amphetamines Screen Negative U Benzodiazepines Scrn Negative Urine Cocaine Screen Negative Ur THC Screen Negative Last Vital Signs Temp 36.5 C 08/01/19 20:28 Pulse 99 H 08/01/19 20:28 Resp 16 08/01/19 20:28 BP 150/92 H 08/01/19 20:28 Pulse Ox 97 08/01/19 20:28 COVID-19 Screening Traveled to [place] from one of the affected countries or regions?: NO Recent travel in the [place] within the last 14 days?: No Recent out of the country travel within the last 14 days?: No Exposure or possible exposure to illness during travel?: No Had IN PERSON contact w/suspected or confirmed C-19 person: No Have you had the following symptoms in the past few days?: No Symptoms noted since travel?: No Symptoms
--- NOTE | 2019-08-01 23:11 | NUR.NOTE ---
pt has been ambulating to the bathroom. she has a steady gait. speech is clear. she asked the same questions. she had c/o head ache but has not compalined since she got tylenol. she has had a leonard joesph and a diet coke. she has eaten a few grahaam crackers Nursing Note:
[2019-08-01] MEDS: Aspirin 325 MG TAB PO (23:45)
[2019-08-01] MEDS: traZODone 50 MG TAB PO (23:45)
[2019-08-02] VITALS (26 sets, daily range): BP systolic 113–142; BP diastolic 63–87; PULSE 69–97; RESP 12–32; TEMP 36.5–36.7; O2SAT 96–98
[2019-08-02 08:31] LABS: Anion Gap 7.3 mmol/L (3-11); BUN 8 mg/dL (7-18); CO2 26.7 mmol/L (21.0-32.0); CREATININE 0.72 mg/dL (0.55-1.02); Calcium 8.8 mg/dL (8.5-10.1); Chloride 106 mmol/L (98-107); Glucose 103 mg/dL (74-106); Potassium 3.4 mmol/L (3.5-5.1); Sodium 140 mmol/L (136-145)
[2019-08-02] MEDS: Potassium Chloride 20 MEQ TABCR 40 MEQ PO (10:27)
[2019-08-02] MEDS: Omeprazole 20 MG CAPCR 40 MG PO (10:27)
--- NOTE | 2019-08-02 10:27 | PHA.REVIEW ---
Pharmacy Admission Review - Admission Clinical Review (Last Reviewed 08/01/19 @ 22:44 by JL Armendariz) Altered mental status (Acute) epinephrine Adverse Reaction (Severe, Unverified 08/01/19 19:07) Bradycardia Height 5 ft 2 in Weight 82.9 kg - Renal Dosing Renal Dosing: BUN 8 mg/dL (7-18) D 08/02/19 08:14 Creatinine 0.72 mg/dL (0.55-1.02) 08/02/19 08:14 Medications needing adjustments: Reviewed - Anticoagulation Anticoagulation: Hgb 14.1 g/dL (12.0-15.5) 08/01/19 17:30 Hct 41.7 % (36.0-46.0) 08/01/19 17:30 Plt Count 323 x1000/uL (130-400) 08/01/19 17:30 INR 1.0 (0.9-1.1) 08/01/19 17:30 Creatinine 0.72 mg/dL (0.55-1.02) 08/02/19 08:14 - Relevant Labs Sodium 140 mmol/L (136-145) 08/02/19 08:14 Potassium 3.4 mmol/L (3.5-5.1) L 08/02/19 08:14 Chloride 106 mmol/L (98-107) 08/02/19 08:14 Magnesium 2.0 mg/dL (1.8-2.4) 08/02/19 08:14 - DM Control DM Control: Glucose 103 mg/dL (74-106) 08/02/19 08:14 - Heart Failure/VA Heart Failure/VA: Troponin I 0.06 ng/Ml (<0.06) 08/01/19 20:30 - BP Control BP Control: Blood Pressure 113/68 Blood Pressure 116/63
[2019-08-02] MEDS: Acetaminophen 325 MG TAB 650 MG PO (12:15)
--- NOTE | 2019-08-02 13:06 | PDOC.CMIN ---
- If Service Date Differs Date of service: 08/02/19 Time of Service: 13:06 Care Management Initial Assess REASON FOR HOSPITALIZATION:: AMS PAST MEDICAL HISTORY/PAST SURGICAL HISTORY:: Chronic cough (Acute). GERD (gastroesophageal reflux disease) (Chronic). Hiatal hernia (Chronic). Insomnia (Acute). Migraines (Chronic). Seasonal allergies (Acute). Thymoma (Acute). Surgical History. S/P thymectomy PREVIOUS FUNCTIONAL STATUS/SOCIAL/FAMILY SUPPORTS:: Radha live with her spouse and her her two dogs here in [place], [place]. 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 She is independent at baseline and has no services. CURRENT FUNCTIONAL STATUS:: Radha is alert and engaged during assessment. She states that she is feeling better today except for a headache which she feels is related to decrease caffeine intake today. She states has a good relationship with primary care provider she has no concerns about access to care in the community. She is hopeful she will be able to return home today. ADVANCE DIRECTIVES:: Not on file she states she believes she has completed them and they are at [facility]. Has patient been provided with information about the portal?: Yes Did the patient sign up for the portal?: Yes CODE STATUS:: Full Code INSURANCE COVERAGE / FINANCIAL ISSUES:: BCBS F, and Medicare CURRENT HOME/COMMUNITY SERVICES/EQUIPMENT:: None PRIMARY CARE PHYSICIAN:: POTENTIAL DISCHARGE NEEDS:: Follow up with primary care. PATIENT/FAMILY EDUCATION NEEDS:: Discharge education, limitations and follow up plan of care including ask me three and self management ANTICIPATED BARRIERS TO DISCHARGE:: None TRANSPORTATION:: Via private car with spouse PLAN:: Radha will be discharged home when medically cleared she will follow up with primary care as directed. CM to continue to provide support and assess discharge needs.
--- NOTE | 2019-08-02 14:01 | DI.US_ITS ---
APPROVED REPORT EXAM: Comprehensive 2D, Doppler, and color-flow Echocardiogram Patient Location: In-Patient Room/Bed: [address] Gager Apprentice: Myla Alcala RDCS (AE) Indications: Transient global amnesia Conclusion Left Ventricle : The left ventricle is normal size. The left ventricular systolic function is normal. The left ventricular ejection fraction is within the normal range. There is normal left ventricular wall thickness. There is normal LV segmental wall motion. The left ventricular diastolic function is normal. LVEF is 55%. Right Ventricle : The right ventricle is normal size. The right ventricular systolic function is norm al. The RVSP is 22 mmHg. Atria : The left atrium size is normal. The right atrium size is normal. The interatrial septum is in tact with no evidence for an atrial septal defect. Valves: There are no hemodynamically significant valvular lesions. Great Vessels : IVC is normal in size and collapses >50% with inspiration. There is no prior echocardiogram available for comparison. Wall motion Left Ventricle The left ventricle is normal size. The left ventricular systolic function is normal. The left ventric ular ejection fraction is within the normal range. There is normal left ventricular wall thickness. T here is normal LV segmental wall motion. The left ventricular diastolic function is normal. There is no ventricular septal defect visualized. LVEF is 55%. Right Ventricle The right ventricle is normal size. The right ventricular systolic function is normal. The RVSP is 22 mmHg. Atria The left atrium size is normal. The right atrium size is normal. The interatrial septum is intact wit h no evidence for an atrial septal defect. Aortic Valve The aortic valve is normal in structure. There is no aortic valvular stenosis. Mild aortic regurgitat ion. Mitral Valve There is mitral annular calcification. No evidence of mitral valve stenosis. Mild mitral regurgitatio n. Tricuspid Valve The tricuspid valve is normal in structure. There is no tricuspid valve stenosis. Trace to mild tricu spid regurgitation. Pulmonic Valve The pulmonary valve is normal in structure. There is no pulmonic valvular stenosis. There is no pulmo priyanka valvular regurgitation. Great Vessels The aortic root is normal in size. The ascending aorta is mildly dilated. Aortic arch is normal in ca liber. IVC is normal in size and collapses >50% with inspiration. Pericardium There is no pericardial effusion. There is no pleural effusion. 2D Dimensions IVSD d PLAX 0.80 cm F: 0.6-1.0 LV Vol A2C d MOD 71.8 mL LVPW d PLAX 0.83 cm F: 0.6 - 1.0 LV Vol A4C d MOD 105.7 mL LVID d PLAX 5.04 cm F: 3.8 - 5.2 LA vol/ BSA A2C s A-L 13.7 mL/m2 LVDs 3.95 cm F: 2.2 - 3.5 LA vol/ BSA A4C s A-L 19.6 mL/m2 Ao Root d 3.01 cm F: 2.7 - 3.3 LA Vol/ BSA Biplane s A-L 17.0 mL/m2 RA Area A4C 8.05 cm2 LA Area A4C s MOD 13.91 cm2 RA Vol/ BSA A4C s A-L 8.6 mL/m2 LA Area A2C s MOD 11.22 cm2 Ao Asc Diam d 3.42 cm F: 2.3 - 3.1 LV EF A4C MOD 55.4 % LV EF Teichholz 43.5 % LV EF A2C MOD 53.8 % LVEF (Pereira's) 54.76 % F: 54 - 74 LV EF Biplane MOD 54.8 % LV Volume 69.83 mL F: 46 - 106 LV Volume Index 38.15 mL/m2 F: 29 - 61 LV Vol Biplane MOD 90.4 mL FS 21.55 % M-Mode TAPSE 2.10 cm (M/F) >1.7 LV Diastology MV E' medial 0.083 (>0.07 m/s) E/A Ratio 0.8 LV E/e MED 10.25 (<14) MV E Vmax 0.85 (0.4-1.3 m/s) MV E' lateral 0.104 (>0.1 m/s) MV A Vmax 1.05 (0.4-1.3 m/s) LV E/e LAT 8.20 (<14) MV E/A Ratio 0.80 MV E/E' medial 10.26 MV E/E' lateral 8.21 Aortic Valve LVOT Area 3.24 cm2 AoV Area Vmax 2.41 cm2 LVOT Vmax 1.22 m/s AoV Area/ BSA (Vmax) 1.31 cm2/m2 LVOT Mean Anson. 0.76 m/s NATA Mean Anson. 2.18 cm2 LVOT Peak Grad 6.0 mmHg NATA Mean Anson. Index 1.19 cm2/m2 LVOT Mean Grad 2.8 mmHg AR DT 1965 msec LVOT VTI 0.259 m AR PHT 570 msec LVOT Diam s 2.00 cm (M/F) 1.5-2.5 AoV Vmax 1.64 (0.5-1.3 m/s) Velocity Ratio 0.74 AoV Mean Anson. 1.13 m/s AoV Peak Grad 10.8 mmHg LVOT SV 84.10 mL AoV Mean Grad 5.7 (<5 mmHg) AoV VTI 0.319 (0.18-0.25 m) AoV Area VTI 2.64 (2.5-4.5 cm2) AoV Area/ BSA (VTI) 1.44 cm/m2 Mitral Valve MV DT 297 (160-240 msec) MR PISA Radius 0.27 cm MV PHT 86 msec MR Aliasing Velocity 0.35 m/s MV Area PHT 2.55 cm2 MR PISA 0.46 cm2 Pulmonary Valve PV Vmax 0.80 (0.5-1.5 m/s) RVOT Peak Gr. 1.75 mmHg PV Peak Grad 2.6 mmHg RVOT Mean Gr. 0.85 mmHg PV Mean Grad 1.3 mmHg RVOT VTI 0.147 m PV VTI 0.157 m RVOT Vmax 0.66 m/s Tricuspid Valve TR Peak Grad 19.1 mmHg TR Vmax 2.19 m/s RA Pressure 3.00 mmHg RVSP (TR) 22.2 mmHg
--- NOTE | 2019-08-02 14:07 | DI.MRI_ITS ---
EXAM: MR BRAIN WO CLINICAL HISTORY: AMS, ?TRANSIENT GLOBAL AMNESIA TECHNIQUE: Multiplanar multisequence MRI of the brain was performed. COMPARISON: No exams were available for comparison FINDINGS: VENTRICLES AND EXTRA AXIAL SPACES: Normal in size and morphology for the patient's age. MIDLINE SHIFT: None. CEREBRAL PARENCHYMA: No focus of restricted diffusion to suggest acute infarct. No space-occupying le srinivas identified. There are a few foci of hyperintense signal on the T2 and FLAIR images most suggesti ve of small vessel ischemic disease. HEMORRHAGE: None. BRAINSTEM/CEREBELLUM: Normal. CALVARIUM: Normal. VISUALIZED PARANASAL SINUSES/MASTOIDS:There is mild mucosal thickening in the right sphenoid sinus. The remaining visualized paranasal sinuses are clear. ELEM OF GRAJEDA: Normal flow void. PITUITARY GLAND: Unremarkable. OTHER FINDINGS: None. IMPRESSION: Mild small vessel ischemic disease. No acute intracranial process. No evidence of an acute infarct. DATA REPOSITORY:
--- NOTE | 2019-08-02 16:01 | W.NEUROCONSU ---
Date of service: 08/02/19 Time of Service: 16:01 Assessment and Plan Assessment and plan (1) Transient global amnesia: Status: Acute Assessment and plan: Ms. Richmond is a 69 year-old, right-handed woman with a past medical history of migraines who presented with approximately 12 hours of amnesia, now back to baseline. Her neurological exam is unremarkable. Her clinical symptoms are consistent with transient global amnesia (TGA) which I discussed with her. Her MRI however, had a small punctate blush of diffusion restriction in the mid right temporal lobe. I suspect this is secondary to the TGA and not causative. Just as a precaution, however, I do recommend ASA 81mg daily. We discussed recurrence rates of TGA vary between 5-20%. A third time is very unlikely. TGA is NOT associated with increased morbidity/mortality. Otherwise, she has a remote history of migraine headaches without aura and more recent ocular migraines. We discussed magnesium 400mg HS for migraine prevention. ADRs were discussed. She should follow-up in the neurology clinic in 4-6 weeks. Thank you for this consultation. (2) Ocular migraine: Status: Acute (3) Migraine headache without aura: Status: Acute History of Present Illness History of Present Illness Chief Complaint: confusion Narrative: Handedness: right. HPI: Ms. Richmond is a 69 year-old woman with a past medical hystory of thymoma s/p thymectomy, chronic cough (non-asthmatic), a hiatal hernia, and GERD. Ms. Richmond was brought by her to the ER yesterday with confusion. They were outside doing yard work at about 1pm when she suddenly became confused. By report, she was repeating statements and questions and could not remember both current and remote events. As the day went on, her memory improved and by late night/early this am she returned back to baseline. She has no history of going outside yesterday and does not recall being in the ER or getting CT scans. She has a long history of migraine headaches, though very rare headaches <1/month in recent years. She does however continue to have ocular migraines of some frequency. She has chronic insomnia but with Trazadone sleeps ~8hours per night. She drinks large amounts of caffeine per day (diet coke). She developed a headache after her amnesia resolved. She attributes this to caffeine withdrawal. She underwent an extensive work-up as below as well as lab work including a normal CBC, CMP with glucose 116, neg trop x2, and normal TSH. Work-up -CTH: unremarkable. I reviewed these images personally. -CTA head/neck: particularly tortuous L ICA with no areas of significant stenosis. I reviewed these images personally. -MRI brain wo: small punctate area of diffusion blush in the right temporal lobe with apparent ADC correlation. Minimal chronic small vessel disease changes. I reviewed these images personally. -TTE:E 55%, on wall motion abnormalities; LA normal Consults Requesting physician: Salud Vera Review of Systems All systems reviewed & are unremarkable except as noted in HPI and below PFSH Medical History Chronic cough (Acute) GERD (gastroesophageal reflux disease) (Chronic) Hiatal hernia (Chronic) Insomnia (Acute) Migraines (Chronic) Seasonal allergies (Acute) Thymoma (Acute) Surgical History S/P thymectomy (Acute) Social History Smoking/Tobacco Use Status: Never Alcohol Intake: current Alcohol Intake frequency: holidays/special occasions only Drug use: Never Household members: spouse Do you feel safe at home: Yes Do you feel safe in your relationship?: Yes Visit Medication and Allergies Active Medications Generic Name Dose Route Start Last Admin Trade Name Freq PRN Reason Stop Dose Admin Acetaminophen 650 mg 08/01/19 22:03 08/02/19 12:15 Tylenol PO 650 mg Q4H PRN PRN Administration Cetirizine HCl 10 mg 08/02/19 22:00 Zyrtec PO HS FELI Dimethicone/Zinc Oxide 0 gm 08/01/19 22:03 Hira Protect Cream TP PRN PRN IV Miscellaneous Supplies 1 each 08/01/19 17:30 IV DIRECTED FELI Iohexol 100 ml 08/01/19 18:15 08/01/19 18:07 Omnipaque 350 IJ 08/31/19 23:59 85 ml DIRECTED FELI Administration Naproxen Sodium 440 mg 08/01/19 22:07 Aleve PO BID PRN PRN Pain Omeprazole 40 mg 08/02/19 07:30 08/02/19 10:27 Prilosec PO 40 mg DAILY@0730 FELI Administration Sodium Chloride 0 ml 08/01/19 17:30 Saline Flush 10 Ml Syringe IVP PRN PRN Trazodone HCl 50 mg 08/02/19 22:00 Desyrel PO HS FELI Allergies epinephrine Adverse Reaction (Severe, Unverified 08/01/19 19:07) Bradycardia Exam Narrative Exam Narrative: Physical Exam: Gen: Patient of apparent stated age, NAD Head and face: no facial or cranial abnormalities Neck: Supple, no meningismus, no occipital tenderness CV: + S1, S2, RRR, no murmur Resp: CTA B/L Abd: soft, nontender, nondistended Ext: No edema. No clubbing or cyanosis. No bony deformity. Neuro Exam: Language: fluency, naming, repetition, and comprehension intact; Mental Status: AAOx3, current events intact, fund of knowledge intact; Speech: no dysarthria Cranial nerves: Funduscopy: not performed CN II: visual avelar intact CN III, IV, : extraocular movements intact, no nystagmus, pupils symmetric and reactive to light CN V: face sensation intact to LT and PP CN VII: no facial asymmetry noted CN VIII: hearing intact bilaterally CN IX, X: unable to test CN XI: trapezius/SCM 5/5 bilaterally CN XII: unable to test Sensory: intact to LT, PP, vibration, and joint position in all extremities Motor: bulk and tone intact. Fine motor movements intact bilaterally. No pronator drift. Strength 5/5 throughout including the deltoids, biceps, triceps, wrist extensors, hip flexors, knee flexors, knee extensors, ankle flexors, and ankle extensors. Reflexes: 2+ at the biceps, triceps, and brachioradialis; reduced at the patella and achilles tendons bilaterally; toes down going bilaterally; Coordination: FTN and HTS intact bilaterally Gait: unable to test Results Last Vital Signs Temp 36.5 C 08/02/19 13:46 Pulse 95 H 08/02/19 13:46 Resp 16 08/02/19 13:46 BP 142/78 H 08/02/19 13:46 Pulse Ox 96 08/02/19 13:46 Labs Result diagrams: 08/01/19 17:30 08/02/19 08:14 Labs: Laboratory Results - last 24 hr 08/01/19 08/01/19 08/01/19 17:30 17:30 17:30 WBC RBC Hgb Hct MCV MCH MCHC RDW Plt Count MPV Immature Gran % Neutrophils % Lymphocytes % Monocytes % Eosinophils % Basophils % Absolute Neutrophils Absolute Lymphocytes Absolute Monocytes Absolute Eosinophils Absolute Basophils PT 9.6 INR 1.0 VBG pH VBG pCO2 VBG pO2 VBG HCO3 VBG Total CO2 VBG O2 Saturation VBG Base Excess Sodium Potassium Chloride Carbon Dioxide Anion Gap BUN Creatinine Estimated GFR/1.73 m2 Glucose Calcium Magnesium Total Bilirubin AST ALT Alkaline Phosphatase Ammonia < 10 L Troponin I Total Protein Albumin TSH 1.20 Urine Color Urine Clarity Urine pH Ur Specific [place] Urine Protein Urine Ketones Urine Blood Urine Nitrite Urine Bilirubin Urine Urobilinogen Ur Leukocyte Esterase Urine RBC Urine WBC Ur Epithelial Cells Urine Crystals Urine Bacteria Urine Casts Urine Mucus Urine Other Ur Culture Indicated? Urine Glucose Urine Opiates Screen Urine Methadone Screen Ur Barbiturates Screen Ur Tricyclics Screen Ur Amphetamines Screen U Benzodiazepines Scrn Urine Cocaine Screen Ur THC Screen 08/01/19 08/01/19 08/01/19 17:30 17:30 17:58 WBC 9.35 RBC 4.76 Hgb 14.1 Hct 41.7 MCV 87.6 MCH 29.6 MCHC 33.8 RDW 13.3 Plt Count 323 MPV 8.9 Immature Gran % 0.2 Neutrophils % 73.0 Lymphocytes % 21.0 Monocytes % 4.8 Eosinophils % 0.6 Basophils % 0.4 Absolute Neutrophils 6.82 H Absolute Lymphocytes 1.96 Absolute Monocytes 0.45 Absolute Eosinophils 0.06 Absolute Basophils 0.04 PT INR VBG pH VBG pCO2 VBG pO2 VBG HCO3 VBG Total CO2 VBG O2 Saturation VBG Base Excess Sodium 137 Potassium 3.7 Chloride 103 Carbon Dioxide 26.3 Anion Gap 7.7 BUN 14 Creatinine 0.94 Estimated GFR/1.73 m2 59.04 Glucose 116 H Calcium 9.6 Magnesium 1.9 Total Bilirubin 0.7 AST 18 ALT 23 Alkaline Phosphatase 77 Ammonia Troponin I 0.05 Total Protein 7.3 Albumin 3.8 TSH Urine Color Yellow Urine Clarity Clear Urine pH 5.0 Ur Specific [place] 1.015 Urine Protein Negative Urine Ketones 15 H Urine Blood Trace-lysed H Urine Nitrite Negative Urine Bilirubin Negative Urine Urobilinogen 0.2 Ur Leukocyte Esterase Negative Urine RBC Negative Urine WBC Negative Ur Epithelial Cells Negative Urine Crystals Negative Urine Bacteria Negative Urine Casts Negative Urine Mucus Negative Urine Other Negative Ur Culture Indicated? No Urine Glucose Negative Urine Opiates Screen Urine Methadone Screen Ur Barbiturates Screen Ur Tricyclics Screen Ur Amphetamines Screen U Benzodiazepines Scrn Urine Cocaine Screen Ur THC Screen 08/01/19 08/01/19 08/01/19 17:58 18:50 20:30 WBC RBC Hgb Hct MCV MCH MCHC RDW Plt Count MPV Immature Gran % Neutrophils % Lymphocytes % Monocytes % Eosinophils % Basophils % Absolute Neutrophils Absolute Lymphocytes Absolute Monocytes Absolute Eosinophils Absolute Basophils PT INR VBG pH 7.38 VBG pCO2 45 VBG pO2 33 VBG HCO3 26 VBG Total CO2 24 VBG O2 Saturation 64 L VBG Base Excess 1.0 Sodium Potassium Chloride Carbon Dioxide Anion Gap BUN Creatinine Estimated GFR/1.73 m2 Glucose Calcium Magnesium Total Bilirubin AST ALT Alkaline Phosphatase Ammonia Troponin I 0.06 Total Protein Albumin TSH Urine Color Urine Clarity Urine pH Ur Specific [place] Urine Protein Urine Ketones Urine Blood Urine Nitrite Urine Bilirubin Urine Urobilinogen Ur Leukocyte Esterase Urine RBC Urine WBC Ur Epithelial Cells Urine Crystals Urine Bacteria Urine Casts Urine Mucus Urine Other Ur Culture Indicated? Urine Glucose Urine Opiates Screen Negative Urine Methadone Screen Negative Ur Barbiturates Screen Negative Ur Tricyclics Screen Negative Ur Amphetamines Screen Negative U Benzodiazepines Scrn Negative Urine Cocaine Screen Negative Ur THC Screen Negative 08/02/19 08:14 WBC RBC Hgb Hct MCV MCH MCHC RDW Plt Count MPV Immature Gran % Neutrophils % Lymphocytes % Monocytes % Eosinophils % Basophils % Absolute Neutrophils Absolute Lymphocytes Absolute Monocytes Absolute Eosinophils Absolute Basophils PT INR VBG pH VBG pCO2 VBG pO2 VBG HCO3 VBG Total CO2 VBG O2 Saturation VBG Base Excess Sodium 140 Potassium 3.4 L Chloride 106 Carbon Dioxide 26.7 Anion Gap 7.3 BUN 8 D Creatinine 0.72 Estimated GFR/1.73 m2 >= 60.00 Glucose 103 Calcium 8.8 Magnesium 2.0 Total Bilirubin AST ALT Alkaline Phosphatase Ammonia Troponin I Total Protein Albumin TSH Urine Color Urine Clarity Urine pH Ur Specific [place] Urine Protein Urine Ketones Urine Blood Urine Nitrite Urine Bilirubin Urine Urobilinogen Ur Leukocyte Esterase Urine RBC Urine WBC Ur Epithelial Cells Urine Crystals Urine Bacteria Urine Casts Urine Mucus Urine Other Ur Culture Indicated? Urine Glucose Urine Opiates Screen Urine Methadone Screen Ur Barbiturates Screen Ur Tricyclics Screen Ur Amphetamines Screen U Benzodiazepines Scrn Urine Cocaine Screen Ur THC Screen
--- NOTE | 2019-08-02 17:04 | W.PM.DS.N ---
Date of service: 08/02/19 Time of Service: 17:04 DS: Diagnosis Discharge Diagnosis (1) Transient global amnesia: Status: Acute (2) Hypokalemia: Status: Acute (3) Migraines: Status: Chronic Discharge Plan Disposition Patient Disposition: HOME Condition: Good Discharge Details Chief Complaint: AMS/LOC Clinical Impression: Altered mental status Reason For Visit: MENTAL STATUS CHANGE Admit Date/Time: 08/01/19 22:04 Admit Provider: Alec Davis Attending Provider: Alec Davis Primary Care Provider: Quan Stewart ED Provider: Yenni Lugo [facility] Course Hospital Course: Ms Richmond is a 69 year old female with PMHx of migraines and GERD who was observed on [facility] hospitalist service from 08/01/2019 until 08/02/2019 after an episode of confusion and memory loss and otherwise no focal deficits, not preceded by trauma. Her workup consisted of a negative CT/CTA head/neck, no arrhythmias on telemetry, no abnormalities on the echo, and mild small vessel ischemic disease on the MRI. Her mental status returned back to normal and remained at baseline for the duration of her stay at the hospital. She was evaluated by Dr Rice of neurology, who agreed with the initial impression that the patient had transient global amnesia. She does recommend that the patient take a daily baby aspirin based on the appearance of the MRI and magnesium oxide 400 mg at night for prevention of migraines. The patient is medically stable for discharge home today with routine follow up with Dr Rice. She was checked for COVID-19 (out of abundance of caution; was never symptomatic) - results of test are still pending at the time of discharge, and the patient is recommended to self-quarantine until the results are known. Home Meds and New Rx's Prescriptions: New aspirin 81 mg tablet,delayed release (DR/EC) 81 mg PO DAILY Qty: 30 RF: 0 magnesium oxide 400 mg (241.3 mg magnesium) tablet 400 mg PO DAILY Qty: 30 RF: 0 Continued trazodone 50 MG tablet 50 mg PO HS RF: 0 omeprazole 40 MG capsule,delayed release(DR/EC) 40 mg PO DAILY RF: 0 Zyrtec 10 MG capsule 10 mg PO HS RF: 0 naproxen sodium [Aleve] 220 MG capsule 660 mg PO BID PRNRF: 0 estradiol [Vagifem] 10 MCG tablet 10 mcg VG HS Qty: 24 RF: 6 Discharge Instructions Instructions: Transient Global Amnesia (ED) Additional Instructions: Return to the hospital with any fever, bleeding, chest pain, shortness of breath. Self-quarantine until results of your COVID-19 testing are known. Referrals: Margarita Smith [Emergency Nurse] - Sloane Rice MD [ [facility] STAFF PHYSICIAN] - Activity:: Activity as Tolerated Equipment/Supplies:: No Equipment Needed Diet:: As Tolerated Discharge Orders Discharge Orders: Discharge Order (Routine); Ordered 08/02/19 Ordered By: Salud Vera DS: Summary Status at Discharge Functional status at discharge: independent ambulation Overall status at discharge: patient is back to baseline Mental Status: mental status grossly normal Speech and Movement: speech and movement normal Mood: congruent mood Affect: normal affect Exam Narrative Exam Narrative: General: Very pleasant middle-aged female, A&Ox3, sitting up comfortably in bed, no focal neurological deficits HEENT: EOMI, MMM Heart: RRR, no m/r/g Lungs: CTAB Abdomen: soft, nontedistended Extremities: no e/c/c BLE's Psych Mental Status: mental status grossly normal Speech and Movement: speech and movement normal Mood: congruent mood Affect: normal affect DS: Data Vitals/I&O Vitals and I&O: Vital Signs Temperature 36.5 C 08/02/19 13:46 Temperature Source Temporal Artery Scan 08/02/19 13:46 Pulse 95 H 08/02/19 13:46 Pulse Rhythm Regular 08/02/19 10:00 Pulse 91 H 08/02/19 13:12 Respiratory Rate 16 08/02/19 13:46 Respiratory Effort 08/02/19 13:43 Respiratory Depth Normal 08/02/19 13:43 Respiratory Pattern Normal 08/02/19 13:43 Blood Pressure 142/78 H 08/02/19 13:46 Blood Pressure Mean 94 08/02/19 13:12 Blood Pressure Position Supine 08/01/19 17:28 Pulse Oximetry 96 08/02/19 13:46 Oxygen Delivery Method Room Air 08/02/19 13:46 Oxygen Flow Rate 0 08/02/19 13:46 Pain Level 0 08/02/19 13:46 Intake & Output 08/01/19 08/02/1908/01/20 23:59 11:59 23:59 Intake Total 440 / 800 360 / 800 Output Total 650 / 650 Balance -210 / 150 360 / 150 Weight 79.379 kg 82.9 kg Intake: Oral 440 / 800 360 / 800 Output: Urine 650 / 650 Other: Urine Color Yellow Urine Appearance Clear Clear Urine Odor Normal Voiding Methods Bedside Commode Data Completed and Pending Completed studies during hospitalization [Text1]: CT head 08/01/2019: Normal cranial CT. CXR: Normal chest CTA brain/neck; Negative CT angiography of the cervical cranial region. Echo: Left Ventricle : The left ventricle is normal size. The left ventricular systolic function is normal. The left ventricular ejection fraction is within the normal range. There is normal left ventricular wall thickness. There is normal LV segmental wall motion. The left ventricular diastolic function is normal. LVEF is 55%. Right Ventricle : The right ventricle is normal size. The right ventricular systolic function is normal. The RVSP is 22 mmHg. Atria : The left atrium size is normal. The right atrium size is normal. The interatrial septum is intact with no evidence for an atrial septal defect. Valves: There are no hemodynamically significant valvular lesions. Great Vessels : IVC is normal in size and collapses >50% with inspiration. There is no prior echocardiogram available for comparison. MRI brain w/o contrast; Mild small vessel ischemic disease. No acute intracranial process. No evidence of an acute infarct. Labs on day of discharge: Labs from last 24 hours 08/02/19 08/01/19 08/01/19 08:14 22:15 20:30 WBC RBC Hgb Hct MCV MCH MCHC RDW Plt Count MPV Immature Gran % Neutrophils % Lymphocytes % Monocytes % Eosinophils % Basophils % Absolute Neutrophils Absolute Lymphocytes Absolute Monocytes Absolute Eosinophils Absolute Basophils PT INR VBG pH VBG pCO2 VBG pO2 VBG HCO3 VBG Total CO2 VBG O2 Saturation VBG Base Excess Sodium 140 Potassium 3.4 L Chloride 106 Carbon Dioxide 26.7 Anion Gap 7.3 BUN 8 D Creatinine 0.72 Estimated GFR/1.73 m2 >= 60.00 Glucose 103 Calcium 8.8 Magnesium 2.0 Total Bilirubin AST ALT Alkaline Phosphatase Ammonia Troponin I 0.06 Total Protein Albumin TSH Urine Color Urine Clarity Urine pH Ur Specific [place] Urine Protein Urine Ketones Urine Blood Urine Nitrite Urine Bilirubin Urine Urobilinogen Ur Leukocyte Esterase Urine RBC Urine WBC Ur Epithelial Cells Urine Crystals Urine Bacteria Urine Casts Urine Mucus Urine Other Ur Culture Indicated? Urine Glucose Urine Opiates Screen Urine Methadone Screen Ur Barbiturates Screen Ur Tricyclics Screen Ur Amphetamines Screen U Benzodiazepines Scrn Urine Cocaine Screen Ur THC Screen COVID-19 PCR Pending Nasopharyn COVID-19 PCR Pending Ref Test Perform Site Pending 08/01/19 08/01/19 08/01/19 18:50 17:58 17:58 WBC RBC Hgb Hct MCV MCH MCHC RDW Plt Count MPV Immature Gran % Neutrophils % Lymphocytes % Monocytes % Eosinophils % Basophils % Absolute Neutrophils Absolute Lymphocytes Absolute Monocytes Absolute Eosinophils Absolute Basophils PT INR VBG pH 7.38 VBG pCO2 45 VBG pO2 33 VBG HCO3 26 VBG Total CO2 24 VBG O2 Saturation 64 L VBG Base Excess 1.0 Sodium Potassium Chloride Carbon Dioxide Anion Gap BUN Creatinine Estimated GFR/1.73 m2 Glucose Calcium Magnesium Total Bilirubin AST ALT Alkaline Phosphatase Ammonia Troponin I Total Protein Albumin TSH Urine Color Yellow Urine Clarity Clear Urine pH 5.0 Ur Specific [place] 1.015 Urine Protein Negative Urine Ketones 15 H Urine Blood Trace-lysed H Urine Nitrite Negative Urine Bilirubin Negative Urine Urobilinogen 0.2 Ur Leukocyte Esterase Negative Urine RBC Negative Urine WBC Negative Ur Epithelial Cells Negative Urine Crystals Negative Urine Bacteria Negative Urine Casts Negative Urine Mucus Negative Urine Other Negative Ur Culture Indicated? No Urine Glucose Negative Urine Opiates Screen Negative Urine Methadone Screen Negative Ur Barbiturates Screen Negative Ur Tricyclics Screen Negative Ur Amphetamines Screen Negative U Benzodiazepines Scrn Negative Urine Cocaine Screen Negative Ur THC Screen Negative COVID-19 PCR Nasopharyn COVID-19 PCR Ref Test Perform Site 08/01/19 08/01/19 08/01/19 17:30 17:30 17:30 WBC 9.35 RBC 4.76 Hgb 14.1 Hct 41.7 MCV 87.6 MCH 29.6 MCHC 33.8 RDW 13.3 Plt Count 323 MPV 8.9 Immature Gran % 0.2 Neutrophils % 73.0 Lymphocytes % 21.0 Monocytes % 4.8 Eosinophils % 0.6 Basophils % 0.4 Absolute Neutrophils 6.82 H Absolute Lymphocytes 1.96 Absolute Monocytes 0.45 Absolute Eosinophils 0.06 Absolute Basophils 0.04 PT 9.6 INR 1.0 VBG pH VBG pCO2 VBG pO2 VBG HCO3 VBG Total CO2 VBG O2 Saturation VBG Base Excess Sodium 137 Potassium 3.7 Chloride 103 Carbon Dioxide 26.3 Anion Gap 7.7 BUN 14 Creatinine 0.94 Estimated GFR/1.73 m2 59.04 Glucose 116 H Calcium 9.6 Magnesium 1.9 Total Bilirubin 0.7 AST 18 ALT 23 Alkaline Phosphatase 77 Ammonia Troponin I 0.05 Total Protein 7.3 Albumin 3.8 TSH Urine Color Urine Clarity Urine pH Ur Specific [place] Urine Protein Urine Ketones Urine Blood Urine Nitrite Urine Bilirubin Urine Urobilinogen Ur Leukocyte Esterase Urine RBC Urine WBC Ur Epithelial Cells Urine Crystals Urine Bacteria Urine Casts Urine Mucus Urine Other Ur Culture Indicated? Urine Glucose Urine Opiates Screen Urine Methadone Screen Ur Barbiturates Screen Ur Tricyclics Screen Ur Amphetamines Screen U Benzodiazepines Scrn Urine Cocaine Screen Ur THC Screen COVID-19 PCR Nasopharyn COVID-19 PCR Ref Test Perform Site 08/01/19 08/01/19 17:30 17:30 WBC RBC Hgb Hct MCV MCH MCHC RDW Plt Count MPV Immature Gran % Neutrophils % Lymphocytes % Monocytes % Eosinophils % Basophils % Absolute Neutrophils Absolute Lymphocytes Absolute Monocytes Absolute Eosinophils Absolute Basophils PT INR VBG pH VBG pCO2 VBG pO2 VBG HCO3 VBG Total CO2 VBG O2 Saturation VBG Base Excess Sodium Potassium Chloride Carbon Dioxide Anion Gap BUN Creatinine Estimated GFR/1.73 m2 Glucose Calcium Magnesium Total Bilirubin AST ALT Alkaline Phosphatase Ammonia < 10 L Troponin I Total Protein Albumin TSH 1.20 Urine Color Urine Clarity Urine pH Ur Specific [place] Urine Protein Urine Ketones Urine Blood Urine Nitrite Urine Bilirubin Urine Urobilinogen Ur Leukocyte Esterase Urine RBC Urine WBC Ur Epithelial Cells Urine Crystals Urine Bacteria Urine Casts Urine Mucus Urine Other Ur Culture Indicated? Urine Glucose Urine Opiates Screen Urine Methadone Screen Ur Barbiturates Screen Ur Tricyclics Screen Ur Amphetamines Screen U Benzodiazepines Scrn Urine Cocaine Screen Ur THC Screen COVID-19 PCR Nasopharyn COVID-19 PCR Ref Test Perform Site [facility] Medical History (Updated 08/02/19 @ 17:05 by Salud Vera MD) Migraines (Chronic) Social History Smoking/Tobacco Use Status: Never Alcohol Intake: current Alcohol Intake frequency: holidays/special occasions only Drug use: Never Do you feel safe at home: Yes Do you feel safe in your relationship?: Yes
[2019-08-02 22:25] LABS: COVID-19 RT-PCR UVMMC Result Negative (Negative)
== END 2019-08-02 18:00 | disposition home or self-care (01) ==
LOC: ER 22:47 → ICU 23:36
PROVIDERS: Admitting Provider General Practice; Emergency Provider Physician Assistant; PCP Internal Medicine; Visit Provider Internal Medicine
DX: G45.4 Transient global amnesia (principal); E87.6 Hypokalemia; Z11.59 Encounter for screening for other viral diseases; G43.109 Migraine with aura, not intractable, without status migrainosus; G43.009 Migraine without aura, not intractable, without status migrainosus
CPT/HCPCS: 36415; 36416; 70496; 70498; 80048; 80053; 80061; 80307; 82805; 82962; 93005; 93306; 96360; 96361; 99215; 99217; 99222; 99223; 99285; U0003; 70450; 70551; 71046; 81003; 81015; 82140; 83735; 84443; 84484; 85025; 85610; 93010; 99219; G0378; J3490

== ENCOUNTER → 2019-08-02 08:07 | Outpatient (BNVA) | payer MEDICARE, BC, SELFPAY | PROVIDERS: PCP Internal Medicine; Referring Provider Internal Medicine; Visit Provider Psychiatry & Neurology Neurology | DX: R69 Illness, unspecified (principal) ==

== ENCOUNTER → 2019-09-24 10:43 | Outpatient (BNVA) | payer MEDICARE, BC, SELFPAY | PROVIDERS: PCP Internal Medicine; Referring Provider Internal Medicine; Visit Provider Psychiatry & Neurology Neurology | DX: G45.4 Transient global amnesia (principal); G43.009 Migraine without aura, not intractable, without status migrainosus; G43.109 Migraine with aura, not intractable, without status migrainosus | CPT/HCPCS: 99213 ==

== ENCOUNTER 2020-07-01 13:51 | Outpatient (REF) | payer MEDICARE, BC, SELFPAY ==
[2020-07-01 13:46] LABS: Anion Gap 6.8 mmol/L (3-11); BUN 12 mg/dL (7-18); CO2 31.2 mmol/L (21.0-32.0); CREATININE 0.8 mg/dL (0.55-1.02); Calculated LDL 144 mg/dL (<100); Chloride 105 mmol/L (98-107); Cholesterol 247 mg/dL (<200); Glucose 95 mg/dL (74-106); HDL Cholesterol 92 mg/dL (40-60); Potassium 4.3 mmol/L (3.5-5.1); Sodium 143 mmol/L (136-145); Triglyceride 57 mg/dL (<150)
== END 2020-07-01 13:52 | disposition home or self-care (01) ==
LOC: NCHCN 13:51
PROVIDERS: PCP Internal Medicine; Visit Provider Nurse Practitioner Family
DX: I10 Essential (primary) hypertension (principal); M79.604 Pain in right leg; M79.605 Pain in left leg; R31.21 Asymptomatic microscopic hematuria
CPT/HCPCS: 80048; 80061; 87086

== ENCOUNTER 2020-07-07 01:51 | Outpatient (CLI) | payer MEDICARE, BC, SELFPAY ==
--- NOTE | 2020-07-07 | DI.MAMMO_ITS ---
EXAM: MG MAMMO SCREENING CLINICAL HISTORY: SCREENING,Z12.31 TECHNIQUE: Bilateral full field digital CC and MLO mammographic images were obtained with 3D tomosyn thesis and utilizing computer aided detection (CAD). COMPARISON: Available for comparison. FINDINGS: Masses/Architectural Distortion: None seen. Microcalcifications: No suspicious pleomorphic-type are seen. Skin Thickening/Nipple Retraction: None. IMPRESSION: 1. No significant interval change with no specific features of malignancy noted. 2. Unless there is more urgent need, screening mammography is recommended, as per [employer] guidelines. BI-RADS Category 1 - Negative Breast Density - Category C - Heterogeneously dense Breast density category C or D implies that the patient has dense breast tissue. Dense breast tissue is very common and is not abnormal but dense breast tissue can make it harder to find cancer on a ma mmogram. Also, dense breast tissue may increase their breast cancer risk. This information about the result of the mammogram report was provided to the patient to raise their awareness. Use this report when you speak with the patient about their risks for breast cancer, which includes their family hist ory. At that time, you may recommend for more screening tests (Ultrasound or MRI) as they might be us eful based on their risk. A negative radiographic report should not delay biopsy if a dominant or clinically suspicious mass is present. Up to ten percent of cancers are not identified on mammography. A negative report may reinforce clinical impression. Adenosis and dense breasts may obscure an underlying neoplasm. False positive reports average 6 to 10%. Patient will receive a letter notifying them of these results.
== END 2020-07-07 02:11 ==
PROVIDERS: PCP Internal Medicine; Visit Provider Nurse Practitioner Family
DX: Z12.31 Encounter for screening mammogram for malignant neoplasm of breast (principal)
CPT/HCPCS: 77063; 77067

== ENCOUNTER 2020-07-15 15:59 | Outpatient (REF) | payer MEDICARE, BC, SELFPAY ==
[2020-07-15 13:03] LABS: Anion Gap 8.5 mmol/L (3-11); BUN 13 mg/dL (7-18); CO2 28.5 mmol/L (21.0-32.0); CREATININE 0.8 mg/dL (0.55-1.02); Calcium 9.3 mg/dL (8.5-10.1); Chloride 103 mmol/L (98-107); Glucose 99 mg/dL (74-106); Sodium 140 mmol/L (136-145)
--- OUTSIDE RECORDS SUMMARY | 2020-07-15 16:03 | XMS_ITS ---
:1950 Author Care Team Providers Name Role Phone DEVANTE DOTSON APRN Primary Care Provider [phone] KONSTANTIN CHOI Primary Care Provider [phone] Allergies Code Code System Name Reaction Severity Status Onset 3992 RxNorm Epinephrine ? ? Active ? Incruse Ellipta ? ? Active ? 5933 RxNorm Iodine ? ? Active ? 7299 RxNorm Neomycin ? ? Active ? Medications Name Status Start Date Stop Date ? ? Advair HFA 230 mcg-21 mcg/actuation Active ? Not available aerosol inhaler Atrovent HFA 17 mcg/actuation aerosol inhaler Completed ? 10/19/2019 Inhale 2 puffs 4 times a day by inhalation route. azithromycin 250 mg tablet Active ? Not a vailable buspirone 10 mg tablet Active ? Not avail able doxycycline hyclate 100 mg tablet Completed ? 10/19/2019 fluticasone propionate 50 mcg/actuation Active ? Not available nasal spray,suspension Incruse Ellipta 62.5 mcg/actuation Active ? Not available powder for inhalation ipratropium bromide 21 mcg (0.03 %) Completed ? 10/19/2019 nasal spray omeprazole 20 mg capsule,delayed release Active ? Not available Take 1 capsule every day by oral route. prednisone 10 mg tablet Active ? Not avai lable Singulair 10 mg tablet Active ? Not avail able Take 1 tablet every day by oral route. Tessalon Perles Active ? Not available trazodone 50 mg tablet Active ? Not avail able Xopenex HFA 45 mcg/actuation aerosol inhaler Active ? Not available Inhale 2 puffs every 6 hours by inhalation route as needed. Zyrtec 10 mg capsule Active ? Not availab le Take by oral route. Problems Name Status Onset Date Source ? 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 Obesity Active 07/24/2019 ? Anxiety Active 07/24/2019 ? Depressive Disorder Active 07/24/2019 ? Insomnia Active 07/24/2019 ? Asthma Active 07/24/2019 ? Nodule of Lung Active 07/24/2019 ? Indigestion Active 07/24/2019 ? Dyspareunia Active 07/24/2019 ? Cough Active 07/24/2019 ? Dysphagia Active 07/24/2019 ? Procedures None recorded. Results Lab Results None recorded. Past Encounters 10/19/2019 Asthma; Shirlene Hou MD: [address] [place] [address] Dr monica Mcdonald [address] [place] [phone], Ph. 07/26/2019 Asthma; Shirlene Hou MD: [address] [place] [address] Dr monica Mcdonald [address] [place] [phone], Ph. Social History Tobacco Smoking Status Never Smoker Vaccine List Vaccine Type influenza, injectable, quadrivalent 01/16/2019 pneumococcal conjugate PCV 13 03/09/2017 pneumococcal polysaccharide PPV23 04/02/2015 Td (adult) 04/02/2015 Plan of Care Reminders Provider Appointments None ? ? recorded. Lab None ? ? recorded. Referral None ? ? recorded. Procedures None ? ? recorded. Surgeries None ? ? recorded. Imaging None ? ? recorded. Vitals Height Weight BMI Blood Pressure 154.94 cm 79 kg 32.9 kg/m2 150/78 mm[Hg]
== END 2020-07-15 16:00 | disposition home or self-care (01) ==
LOC: NCHCN 15:59
PROVIDERS: PCP Internal Medicine; Visit Provider Nurse Practitioner Family
DX: I10 Essential (primary) hypertension (principal)
CPT/HCPCS: 80048

== ENCOUNTER 2020-07-29 14:45 | Outpatient (CLI) | payer MEDICARE, BC, SELFPAY ==
--- NOTE | 2020-07-29 14:30 | DI.RAD_ITS ---
EXAM: XR KNEE LT 3V AP,LAT,PERLA CLINICAL HISTORY: LEFT KNEE PAIN. TECHNIQUE: 2D digital imaging was performed. COMPARISON: No previous for comparison. FINDINGS: BONES: No acute fracture is present. No bony destructive lesion is seen. JOINTS: The knee is normally aligned. Small joint effusion is seen. The articular surfaces are well maintained. SOFT TISSUE: Normal. IMPRESSION: Small joint effusion. DATA REPOSITORY: RADIATION DOSE DELIVERED:
--- NOTE | 2020-07-29 15:00 | DI.RAD_ITS ---
EXAM: XR HIP LT COMPLETE AP PELVIS CLINICAL HISTORY: f/u. TECHNIQUE: 2D digital imaging was performed. COMPARISON: No exams were available for comparison FINDINGS: BONES: No acute fracture is present. No bony destructive lesion is seen. JOINTS: No dislocation present. SOFT TISSUE: Normal. IMPRESSION: Unremarkable radiographs of the left hip. Unremarkable radiographs of the pelvis DATA REPOSITORY: RADIATION DOSE DELIVERED:
== END 2020-07-29 14:46 | disposition home or self-care (01) ==
PROVIDERS: PCP Internal Medicine; Referring Provider Internal Medicine; Visit Provider Student in an Organized Health Care Education/Training Program
DX: M70.62 Trochanteric bursitis, left hip (principal); M76.32 Iliotibial band syndrome, left leg; M94.262 Chondromalacia, left knee; M25.562 Pain in left knee; M25.462 Effusion, left knee
CPT/HCPCS: 73562; 99204; 99213; 73502

== ENCOUNTER 2020-08-29 21:05 | Outpatient (REF) | payer MEDICARE, BC, SELFPAY ==
[2020-08-29 21:01] LABS: BUN 10 mg/dL (7-18); CREATININE 0.8 mg/dL (0.55-1.02); Calcium 9.2 mg/dL (8.5-10.1); Chloride 98 mmol/L (98-107); Glucose 123 mg/dL (74-106); Potassium 3.3 mmol/L (3.5-5.1); Sodium 136 mmol/L (136-145)
== END 2020-08-29 21:06 | disposition home or self-care (01) ==
LOC: NCHCN 21:05
PROVIDERS: PCP Internal Medicine; Visit Provider Nurse Practitioner Family
DX: I10 Essential (primary) hypertension (principal)
CPT/HCPCS: 80048

== ENCOUNTER → 2020-09-30 13:59 | Outpatient (BNVA) | payer MEDICARE, BC, SELFPAY | PROVIDERS: PCP Internal Medicine; Referring Provider Internal Medicine; Visit Provider Student in an Organized Health Care Education/Training Program | DX: M25.562 Pain in left knee (principal); M76.892 Other specified enthesopathies of left lower limb, excluding foot; M76.52 Patellar tendinitis, left knee | CPT/HCPCS: 99213 ==

== ENCOUNTER 2020-10-27 12:29 | Outpatient (REF) | payer MEDICARE, BC, SELFPAY ==
--- NOTE | 2020-10-27 11:30 | PAPFT_PTH ---
PATIENT: Elana Richmond LOC: [facility]#:[id number] AGE/SX: 70/F ROOM: RE10/27/[address]: Ave Lai : 1950 BED: DIS: 10/27/2020 SPEC #: [id number] RECD: 10/28/20 12:52 STATUS: [place] REQ #: [id number] JOYCE: 10/27/20 11:[address]: Ave Lai DEPT: [facility] Cytology RECD BY: Ramila Del Rosario ENTERED: 10/28/20 12:53 SP TYPE: PAPFT OTHR DR: Quan Stewart Tissues: 1 - CX/ENDOCX FOR PAP SMEARS Procedures: PAP THIN PREP/[facility] Screening HPV DNA PROBE Comments: [id number]
[2020-10-27 21:03] LABS: Anion Gap 9.3 mmol/L (3-11); BUN 12 mg/dL (7-18); CO2 27.7 mmol/L (21.0-32.0); CREATININE 0.8 mg/dL (0.55-1.02); Calcium 9.2 mg/dL (8.5-10.1); Chloride 104 mmol/L (98-107); Glucose 84 mg/dL (74-106); Potassium 4.4 mmol/L (3.5-5.1); Sodium 141 mmol/L (136-145)
== END 2020-10-27 12:30 | disposition home or self-care (01) ==
LOC: NCHCN 12:29
PROVIDERS: PCP Internal Medicine; Visit Provider Nurse Practitioner Family
DX: Z12.4 Encounter for screening for malignant neoplasm of cervix (principal); Z01.419 Encounter for gynecological examination (general) (routine) without abnormal findings; I10 Essential (primary) hypertension; F41.8 Other specified anxiety disorders; E66.9 Obesity, unspecified; G45.4 Transient global amnesia; K30 Functional dyspepsia; Z11.51 Encounter for screening for human papillomavirus (HPV)
CPT/HCPCS: 80048; 88142; 87624

== ENCOUNTER 2020-11-12 19:21 | Outpatient (REF) | payer MEDICARE, BC, SELFPAY ==
[2020-11-14 15:39] LABS: COVID-19 RT-PCR UVMMC Result Negative (Negative)
== END 2020-11-12 19:22 | disposition home or self-care (01) ==
LOC: LBN 19:21
PROVIDERS: PCP Internal Medicine; Visit Provider Nurse Practitioner Family
DX: Z20.822 Contact with and (suspected) exposure to COVID-19
CPT/HCPCS: 80048; U0003; U0005

== ENCOUNTER 2020-11-13 12:48 | Outpatient (REF) | payer MEDICARE, BC, SELFPAY ==
[2020-11-13 14:10] LABS: Anion Gap 5.8 mmol/L (3-11); BUN 8 mg/dL (7-18); CO2 29.2 mmol/L (21.0-32.0); CREATININE 0.8 mg/dL (0.55-1.02); Calcium 9.3 mg/dL (8.5-10.1); Chloride 105 mmol/L (98-107); Glucose 103 mg/dL (74-106); Potassium 4.2 mmol/L (3.5-5.1); Sodium 140 mmol/L (136-145)
== END 2020-11-13 12:49 | disposition home or self-care (01) ==
LOC: NCHCN 12:48
PROVIDERS: PCP Internal Medicine; Visit Provider Nurse Practitioner Family
DX: I10 Essential (primary) hypertension (principal)
CPT/HCPCS: 80048

== ENCOUNTER 2020-12-02 17:32 | Outpatient (REF) | payer MEDICARE, BC, SELFPAY ==
[2020-12-02 21:20] LABS: Bilirubin Negative (Negative); Blood Negative (Negative); Clarity Clear (Clear); Glucose Negative (Negative); Ketones Negative (Negative); Leukocyte Esterase Negative (Negative); Nitrite Negative (Negative); Urobilinogen 0.2 EU/dL (Up TO 0.2)
== END 2020-12-02 17:33 | disposition home or self-care (01) ==
LOC: NCHCN 17:32
PROVIDERS: PCP Internal Medicine; Visit Provider Nurse Practitioner Family
DX: I10 Essential (primary) hypertension (principal); N95.0 Postmenopausal bleeding; R31.21 Asymptomatic microscopic hematuria; E78.5 Hyperlipidemia, unspecified; G43.909 Migraine, unspecified, not intractable, without status migrainosus; K30 Functional dyspepsia; F41.8 Other specified anxiety disorders; E66.9 Obesity, unspecified
CPT/HCPCS: 81003; 87086

== ENCOUNTER 2021-05-07 16:22 | Outpatient (REF) | payer MEDICARE, BC, SELFPAY ==
[2021-05-08 00:03] LABS: COVID-19 RT-PCR UVMMC Result Negative (Negative)
== END 2021-05-07 16:23 | disposition home or self-care (01) ==
LOC: NCHCN 16:22
PROVIDERS: PCP Internal Medicine; Visit Provider Nurse Practitioner Family
DX: Z20.822 Contact with and (suspected) exposure to COVID-19 (principal)
CPT/HCPCS: U0003; U0005

== ENCOUNTER 2021-05-29 02:16 | Outpatient (CLI) | payer MEDICARE, BC, SELFPAY ==
--- NOTE | 2021-05-29 | DI.CT_ITS ---
Exam(s) CT CHEST W EXAM: CT CHEST W CLINICAL HISTORY: THYMOMA D15.0 PULMONARY NODULE J98.4. TECHNIQUE: Multi planar reconstructions were performed. CONTRAST MATERIAL: Omnipaque 350; 75 cc COMPARISON: CT CT CHEST W from 03/23/2019 FINDINGS: CHEST: LUNGS: In the right lung 1 of the 2 previously described nodules in the right middle lobe region isabel ins stable and the other has decreased in size, almost resolved. There are no new additional nodules in the right lung and there are no new significant focal findings in the opposite-left lung. Mild i ncreased markings in the inferior lingular segment of the left lung are unchanged.. No pleural effus ions evident on either side. No significant findings in the trachea and mainstem bronchi. MEDIASTINUM: There is no hilar nor mediastinal adenopathy. Visualized thyroid unremarkable. CARDIAC: Heart size is normal. There is no pericardial effusion.Caliber of the thoracic aorta is wit hin normal limits. VISUALIZED UPPER ABDOMEN:There are no significant adrenal masses. No splenomegaly. Gallbladder surg ically absent. OSSEOUS: No significant osseous lesions.. IMPRESSION: 1. In the right middle lobe region 1 of the small nodules previously described remains unchanged in t he other is mostly resolved. There are no new nodules, no infiltrates, nor pleural effusions. 2. No intrathoracic adenopathy. 3. Gallbladder is surgically absent. RADIATION DOSE DELIVERED: 457.81mGy.cm Total DLP DATA REPOSITORY: All CT scans at this facility are submitted to the National Radiology Data Registry (NRDR) Dose Index Registry (DIR) with the [employer] (A[employer]). RADIATION OPTIMIZATION: All CT scans at this facility use at least one of these dose optimization te chniques: automated exposure control; mA and/or kV adjustment per patient size (includes targeted exa ms where dose is matched to clinical indication); or iterative reconstruction.
[2021-05-29] MEDS: Omnipaque 350 MG/ML 100 ML BTL IJ (09:32)
== END 2021-05-29 02:36 ==
PROVIDERS: PCP Internal Medicine; Visit Provider Nurse Practitioner Family
DX: D15.0 Benign neoplasm of thymus (principal); J98.4 Other disorders of lung; R91.1 Solitary pulmonary nodule
CPT/HCPCS: 71260; J3490

== ENCOUNTER 2021-07-03 18:11 | Outpatient (REF) | payer MEDICARE, BC, SELFPAY ==
[2021-07-05 01:55] LABS: COVID-19 RT-PCR UVMMC Result Positive (Negative)
== END 2021-07-03 18:12 | disposition home or self-care (01) ==
LOC: NCHCN 18:11
PROVIDERS: PCP Internal Medicine; Visit Provider Nurse Practitioner Family
DX: Z20.822 Contact with and (suspected) exposure to COVID-19 (principal)
CPT/HCPCS: U0003; U0005

== ENCOUNTER 2021-11-19 14:58 | Outpatient (REF) | payer MEDICARE, BC, SELFPAY ==
[2021-11-19 16:29] LABS: TSH (W/Ref FT4) 1.44 uIU/mL (0.36-3.74); Vitamin B12 351 pg/mL (193-986)
== END 2021-11-19 14:59 | disposition home or self-care (01) ==
LOC: NCHCN 14:58
PROVIDERS: PCP Internal Medicine; Visit Provider Nurse Practitioner Family
DX: R41.3 Other amnesia (principal); I10 Essential (primary) hypertension; K64.9 Unspecified hemorrhoids; Z12.11 Encounter for screening for malignant neoplasm of colon; G43.909 Migraine, unspecified, not intractable, without status migrainosus; R10.11 Right upper quadrant pain; M25.561 Pain in right knee
CPT/HCPCS: 82607; 84443

== ENCOUNTER → 2022-02-09 02:26 | Outpatient (CLI) | payer MEDICARE, BC, SELFPAY ==
--- NOTE | 2022-02-09 12:15 | DI.MRI_ITS ---
Exam(s) MR LOWER JOINT RT WO EXAM: MR LOWER JOINT RT WO CLINICAL HISTORY: RT KNEE PAIN, M25.561. TECHNIQUE: Multiplanar multisequence MRI was performed. COMPARISON: No exams were available for comparison FINDINGS: BONES: There is no fracture or contusion pattern. JOINTS: There is loss of the articular cartilage in the lateral patellar facet. Subchondral edema is present in the underlying patella. In the lateral femoral tibial joint there is articular cartilage thinning, periarticular spurring and subchondral cyst/edema. There is a small joint effusion. TENDONS: Extensor mechanism: Unremarkable. Medial retinaculum: Unremarkable. Lateral retinaculum: Unremarkable. Popliteus: Unremarkable. MUSCLES: Unremarkable. MENISCI: There is degeneration of the medial meniscus. There does appear to be signal contacting art icular surface in the body suggesting a tear. Likewise in the body of the lateral meniscus there is hyperintense signal contacting the inferior articular surfaces consistent with a tear. SOFT TISSUES: Unremarkable. LIGAMENTS: Anterior Cruciate: Unremarkable. Posterior Cruciate: Unremarkable. Medial Collateral:Unremarkable. Lateral Collateral: Unremarkable. OTHER: IMPRESSION: 1. Tear of the body of the lateral meniscus. Degeneration and/or tear involving the body of the medi al meniscus. 2. No evidence of a ligament tear. 3. Degenerative changes of the knee particularly involving the lateral femoral tibial and patellofemo ral joints. 4. Small joint effusion. DATA REPOSITORY:
== END ==
PROVIDERS: PCP Nurse Practitioner Family; Visit Provider Nurse Practitioner Family
DX: S83.281A Other tear of lateral meniscus, current injury, right knee, initial encounter (principal); M25.461 Effusion, right knee; M17.11 Unilateral primary osteoarthritis, right knee
CPT/HCPCS: 73721

== ENCOUNTER 2022-06-22 02:29 | Outpatient (CLI) | payer MEDICARE, BC, SELFPAY ==
[2022-06-22 15:22] LABS: CREATININE 0.8 mg/dL (0.55-1.02); Estimated GFR 78.24 (mL/min/1.73m2)
== END 2022-06-22 02:30 | disposition home or self-care (01) ==
PROVIDERS: PCP Nurse Practitioner Family; Visit Provider Nurse Practitioner Family
DX: R91.1 Solitary pulmonary nodule (principal); Z01.812 Encounter for preprocedural laboratory examination
CPT/HCPCS: 36415; 82565

== ENCOUNTER 2022-06-24 03:24 | Outpatient (CLI) | payer MEDICARE, BC, SELFPAY ==
--- NOTE | 2022-06-24 | DI.CT_ITS ---
Exam(s) CT CHEST WO EXAM: CT CHEST WO CLINICAL HISTORY: F/U PULMONARY NODULE,J98.4. TECHNIQUE: Imaging protocol: Axial computed tomography images were obtained and coronal and sagittal reformatted images were created and reviewed. COMPARISON: CT CT CHEST W from 05/29/2021 FINDINGS: Tracheobronchial tree: Patent where visualized. Pulmonary parenchyma: No consolidation or dominant measurable mass. No architectural distortion. This 0.6 cm pulmonary nodule associated with the right minor fissure is unchanged. No other pulmonary no dules are seen. There is mild scarring seen in the right middle lobe and left lingula. Mediastinum and Daisy: No dominant adenopathy or fluid collection. The esophagus is unremarkable. Thyroid gland: Unremarkable. Pleura: No effusion or pneumothorax. Heart: The heart is not dilated. Mild coronary artery calcification is present. No pericardial effus ion. Aorta: Thoracic aorta non-dilated. Atherosclerosis is present. Upper abdomen: Status post cholecystectomy. Lymph nodes: Within normal limits. Soft tissues: Unremarkable. Bones:Within normal limits for the patient's age. IMPRESSION: Stable 6 mm pulmonary nodule associated with the right minor fissure. No new pulmonary nodules. RADIATION DOSE DELIVERED: 499.41mGy.cm Total DLP 499.41mGy.cm Total DLP DATA REPOSITORY: All CT scans at this facility are submitted to the National Radiology Data Registry (NRDR) Dose Index Registry (DIR) with the [employer] (ACR). RADIATION OPTIMIZATION: All CT scans at this facility use at least one of these dose optimization te chniques: automated exposure control; mA and/or kV adjustment per patient size (includes targeted exa ms where dose is matched to clinical indication); or iterative reconstruction.
== END 2022-06-24 03:44 ==
LOC: DI 03:25
PROVIDERS: PCP Nurse Practitioner Family; Visit Provider Nurse Practitioner Family
DX: R91.1 Solitary pulmonary nodule (principal); J98.4 Other disorders of lung
CPT/HCPCS: 71250

== ENCOUNTER 2022-06-25 10:43 | Outpatient (CLI) | payer MEDICARE, BC, SELFPAY ==
--- NOTE | 2022-06-25 08:10 | DI.RAD_ITS ---
Exam(s) XR KNEE RT 4V AP,LAT,PERLA,PAT EXAM: XR KNEE RT 4V AP,LAT,PERLA,PAT CLINICAL HISTORY: RIGHT KNEE PAIN. TECHNIQUE: 2D digital imaging was performed of the right knee. Three views obtained. Merchant, AP, l ateral and PA tunnel views were obtained. COMPARISON: There are no priors for comparison. FINDINGS: BONES: No acute fracture is present. No bony destructive lesion is seen. JOINTS: The knee is normally aligned. There is a small joint effusion. There is mild narrowing of th e patellofemoral and lateral femoral tibial joint. SOFT TISSUE: Normal. IMPRESSION: Joint space narrowing and small joint effusion. DATA REPOSITORY: RADIATION DOSE DELIVERED:
== END 2022-06-25 10:44 | disposition home or self-care (01) ==
LOC: DIORS 10:43
PROVIDERS: PCP Nurse Practitioner Family; Referring Provider Nurse Practitioner Family; Visit Provider Student in an Organized Health Care Education/Training Program
DX: M17.11 Unilateral primary osteoarthritis, right knee (principal); S83.281A Other tear of lateral meniscus, current injury, right knee, initial encounter; X58.XXXA Exposure to other specified factors, initial encounter
CPT/HCPCS: 99213; 73564

== ENCOUNTER 2022-07-06 01:25 | Outpatient (CLI) | payer MEDICARE, BC, SELFPAY ==
--- NOTE | 2022-07-06 12:00 | DI.MAMMO_ITS ---
Exam(s) MAMMO SCREENING EXAM: MAMMO SCREENING CLINICAL HISTORY: SCREENING, Z12.31 TECHNIQUE: Mammograms were interpreted according to the usual protocol including computer analysis w [employer] CAD system, tomosynthesis and C-view imaging. COMPARISON: 2014 through 2020 FINDINGS: The breasts are composed of heterogeneously dense fibroglandular densities, Breast Density category C . No suspicious masses or suspicious microcalcifications are seen. No skin thickening or abnormal axillary lymph nodes are seen. There has been no significant change from prior exams. IMPRESSION: BI-RADS Category 1, Negative mammogram. Yearly screening mammography is recommended. Breast Density Category C, heterogeneously Dense. The mammogram demonstrates the patient's breast tissue is dense. Dense breast tissue is very common a nd is not abnormal but dense breast tissue can make it harder to find cancer on a mammogram. Also, de nse breast tissue may increase breast cancer risk. This information about the result of the mammogram report was provided to the patient to raise their awareness. Use this report when you speak with the patient about their risks for breast cancer, which includes their family history. At that time, you may recommend additional screening tests (Ultrasound or MRI) as they might be useful based on their r isk. A negative radiographic report should not delay biopsy if a dominant or clinically suspicious mass is present. Up to ten percent of cancers are not identified on mammography. A negative report may reinforce clinical impression. Adenosis and dense breasts may obscure an underlying neoplasm. False positive reports average 6 to 10%.
== END 2022-07-06 01:45 ==
LOC: DI 01:25
PROVIDERS: PCP Nurse Practitioner Family; Visit Provider Nurse Practitioner Family
DX: Z12.31 Encounter for screening mammogram for malignant neoplasm of breast (principal)
CPT/HCPCS: 77063; 77067

== ENCOUNTER → 2023-02-22 02:07 | Outpatient (CLI) | payer MEDICARE, BC, SELFPAY ==
--- NOTE | 2023-02-22 | DI.RAD_ITS ---
Exam(s) XR FOOT LT COMPLETE EXAM: XR FOOT LT COMPLETE CLINICAL HISTORY: LT FOOT PAIN, M79.672. TECHNIQUE: 2D digital imaging was performed of the left foot. Three images were obtained. AP, obli que and lateral views were obtained. COMPARISON: No exams were available for comparison FINDINGS: BONES: No acute fracture is present. No bony destructive lesion is seen. JOINTS: No dislocation present. Mild degenerative changes are seen at the 1st MTP joint. The joint s paces are otherwise well maintained. SOFT TISSUE: Normal. IMPRESSION: No acute abnormality. DATA REPOSITORY: RADIATION DOSE DELIVERED:
== END ==
PROVIDERS: PCP Nurse Practitioner Family; Visit Provider Nurse Practitioner Family
DX: M79.672 Pain in left foot (principal)
CPT/HCPCS: 73630

== ENCOUNTER 2023-03-07 16:04 | Outpatient (CLI) | payer MEDICARE, BC, SELFPAY ==
--- NOTE | 2023-03-07 15:15 | DI.RAD_ITS ---
Exam(s) XR WRIST RT COMPLETE EXAM: XR WRIST RT COMPLETE CLINICAL HISTORY: R wrist/thumb pain. TECHNIQUE: 2D digital imaging was performed. Three views. COMPARISON: No exams were available for comparison FINDINGS: BONES: No acute fracture is present. No bony destructive lesion is seen. JOINTS: The carpal bones are normally aligned. Mild degenerative changes 1st carpal metacarpal joint . SOFT TISSUE: Normal. IMPRESSION: Mild degenerative changes 1st carpal metacarpal joint. DATA REPOSITORY: RADIATION DOSE DELIVERED:
== END 2023-03-07 16:05 | disposition home or self-care (01) ==
LOC: DIORS 16:04
PROVIDERS: PCP Nurse Practitioner Family; Referring Provider Nurse Practitioner Family; Visit Provider Student in an Organized Health Care Education/Training Program
DX: R22.42 Localized swelling, mass and lump, left lower limb; M18.11 Unilateral primary osteoarthritis of first carpometacarpal joint, right hand
CPT/HCPCS: 99213; 73110

== ENCOUNTER → 2023-04-11 12:49 | Outpatient (BNVA) | payer MEDICARE, BC, SELFPAY | PROVIDERS: PCP Nurse Practitioner Family; Referring Provider Nurse Practitioner Family; Visit Provider Surgery | DX: Z12.11 Encounter for screening for malignant neoplasm of colon (principal) ==

== ENCOUNTER → 2023-04-12 10:49 | Outpatient (BNVA) | payer MEDICARE, BC, SELFPAY | PROVIDERS: PCP Nurse Practitioner Family; Referring Provider Nurse Practitioner Family; Visit Provider Student in an Organized Health Care Education/Training Program | DX: J45.909 Unspecified asthma, uncomplicated (principal); R91.1 Solitary pulmonary nodule | CPT/HCPCS: 36415; 99214 ==

== ENCOUNTER 2023-04-12 15:33 | Outpatient (REF) | payer MEDICARE, BC, SELFPAY ==
[2023-04-12 13:08] LABS: Abs Immature Grans 0.02 10^3/uL (0.0-0.06); Absolute Basophil Count 0.07 10^3/uL (0.0-0.2); Absolute Eosinophil Count 0.31 10^3/uL (0.0-0.7); Absolute Lymphocyte Count 2.78 10^3/uL (1.2-3.4); Absolute Monocyte Count 0.66 10^3/uL (0.1-0.8); Absolute Neutrophil Count 5.24 10^3/uL (1.2-6.7); Basophils % 0.8; Eosinophils % 3.4; HCT 37.9 % (36.0-46.0); HGB 12.2 g/dL (11.2-15.7); Immature Grans % 0.2; Lymphocytes % 30.6; MCH 28.6 pg (27.0-33.0); MCHC 32.2 % (32.0-36.0); MCV 89 fL (80-95); MPV 9.3 fL (8.0-11.0); Monocytes % 7.3; Neutrophils % 57.7; Platelet Count 404 10^3/uL (130-400); RBC 4.27 10^6/uL (3.93-5.22); RDW-SD 45.5 fL; WBC 9.08 10^3/uL (4.4-10.8)
[2023-04-13 08:43] LABS: IgE <2 IU/mL (<158)
== END 2023-04-12 15:34 | disposition home or self-care (01) ==
LOC: LBN 15:33
PROVIDERS: PCP Nurse Practitioner Family; Visit Provider Student in an Organized Health Care Education/Training Program
DX: J45.909 Unspecified asthma, uncomplicated (principal)
CPT/HCPCS: 82785; 85025

== ENCOUNTER 2023-04-14 09:55 | Outpatient (REF) | payer MEDICARE, BC, SELFPAY ==
[2023-04-14] MEDS: Inhaler, Assist Device 1 EACH MC (15:27)
[2023-04-14] MEDS: Levalbuterol HFA 15 GM INH 4 PUFF IH (15:27)
--- NOTE | 2023-04-18 10:50 | W.PFT ---
Date of service: 04/14/23 Time of Service: 13:52 Pulmonary Function Test Result Indications: Asthma Interpretation Spirometry: There is no airflow limitation. There is no bronchodilator response. Lung Volumes: Normal lung volumes Diffusion Capacity: Normal diffusion Airway Pressure: Normal airways resistance Impression Normal pulmonary function testing Clinical Correlation therefore is recommended.
== END 2023-04-14 09:56 | disposition home or self-care (01) ==
LOC: RT 09:55
PROVIDERS: PCP Nurse Practitioner Family; Visit Provider Student in an Organized Health Care Education/Training Program
DX: J45.909 Unspecified asthma, uncomplicated (principal)
CPT/HCPCS: 94060; 94726; 94729

== ENCOUNTER 2023-04-22 06:56 | Day surgery (SDC) | payer MEDICARE, BC, SELFPAY ==
--- NOTE | 2023-04-21 16:38 | W.ANESPRE ---
General Info Date of Service Date Performed: 04/22/23 Height: 5 ft 1.81 in Weight: 73.028 kg Body Mass Index (BMI): 29.6 Surgical Procedure: Operation Date: 04/22/23 08:20 Proposed Procedure Side Surgeon p Zain Elias MD Meds Allergies and Home Medications Allergies Allergy/AdvReac Type Severity Reaction Status Date / Time albuterol [From Combivent] Allergy Severe Verified 04/22/23 07:22 tiotropium Allergy Severe Verified 04/22/23 07:22 [From Spiriva with HandiHaler] umeclidinium Allergy Severe high BP, Verified 04/22/23 07:22 [From Incruse Ellipta] headache, elevated pulse amlodipine Allergy Intermediate Verified 04/22/23 07:22 iodine Allergy Intermediate rash Verified 04/22/23 07:22 neomycin Allergy Intermediate Verified 04/22/23 07:22 Iodinated Contrast Media Allergy Unknown Verified 04/22/23 07:22 epinephrine AdvReac Severe Bradycardia Verified 04/22/23 07:22 Home Medication Medication Instructions Recorded cetirizine 10 mg capsule (Zyrtec) 10 mg PO HS 12/31/15 trazodone 50 mg tablet 50 mg PO HS 12/31/15 aspirin 81 mg tablet,delayed 81 mg PO DAILY #30 tabs 08/02/19 release benzonatate 100 mg capsule 100 mg PO BID-TID PRN 10/31/20 levalbuterol tartrate 45 2 inh inhalation Q6H 10/31/20 mcg/actuation aerosol inhaler (Xopenex HFA) ipratropium bromide 21 mcg (0.03 2 spray intranasal BID 04/27/22 %) nasal spray montelukast 10 mg tablet 10 mg PO DAILY PRN 04/27/22 prednisone 10 mg tablet 10 mg PO DAILY PRN 04/27/22 vitamin B complex 1 tab PO DAILY 04/27/22 buspirone 10 mg tablet 10 mg PO BID PRN 05/12/22 magnesium oxide 400 mg (241.3 mg 250 mg PO DAILY 06/28/22 magnesium) tablet triamcinolone acetonide 55 mcg 2 spray intranasal DAILY #51 mL 12/21/22 nasal spray aerosol (Nasacort) bisacodyl 5 mg tablet,delayed 5 mg PO ONCE colonscopy bowel prep 04/11/23 release (Dulcolax (bisacodyl)) #4 tabs tumeric 100 mg-leonard 150 mg-olive 1 cap PO DAILY 04/11/23 50 mg-oreg 150 mg-caprylate capsule fluticasone propionate 115 2 puff inhalation BID #12 grams 04/12/23 mcg-salmeterol 21 mcg/actuation HFA inhaler (Advair HFA) Current Visit Medications: Current Medications Generic Name Dose Route Start Last Admin Trade Name Mario PRN Reason Stop Dose Admin Ringer's Solution 1,000 mls @ 80 mls/hr 04/22/23 06:00 IV 04/22/23 23:59 INFUSION FELI IV Miscellaneous Supplies 1 each 04/22/23 06:00 Iv Access IV 04/22/23 23:59 DIRECTED FELI Sodium Chloride 0 ml 04/22/23 06:00 Normal Saline Flush 10 Ml Syr IV 04/22/23 23:59 PRN PRN Sodium Chloride 0 ml 04/22/23 06:00 Normal Saline 10 Ml Vial IJ 04/22/23 23:59 DIRECTED PRN Sterile Water 0 ml 04/22/23 06:00 Water,Injection,Sterile 10 Ml Vial IJ 04/22/23 23:59 DIRECTED PRN PFSH Active Problems Active Problems: Problem Status Onset Code Osteoarthritis of carpometacarpal (CMC) joint of right thumb M18.11 Mass of left foot R22.42 Asthma J45.909 Degenerative joint disease of right knee M17.11 Tear of lateral meniscus of right knee S83.281A Postnasal drip R09.82 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 Pulmonary nodule/lesion, solitary R91.1 Asymptomatic microscopic hematuria R31.21 Knee pain M25.569 Otitis externa, left H60.92 Conductive hearing loss of both ears H90.0 Acute serous otitis media, bilateral H65.03 Acute suppurative otitis media with spontaneous rupture of ear drum, recurrent, left ear H66.015 Dyspepsia R10.13 Dysphagia R13.10 Right upper quadrant abdominal pain R10.11 Hemorrhoids K64.9 Memory impairment R41.3 Screening for colon cancer Z12.11 Patellar tendonitis of left knee M76.52 Hamstring tendonitis of left thigh M76.892 Tinnitus, bilateral H93.13 Allergic rhinitis due to allergen J30.9 Migraine headache without aura G43.009 Ocular migraine G43.109 Migraines G43.909 Hypokalemia E87.6 Transient global amnesia G45.4 Altered mental status R41.82 Medical History Medical History Otalgia Tympanic membrane perforation Pain of right thumb Raynaud disease Hyperlipidemia Anxiety and depression Obesity Pulmonary nodule Dyspareunia Microscopic hematuria Hypertension Seasonal allergies Insomnia Chronic cough Thymoma GERD (gastroesophageal reflux disease) Hiatal hernia Surgical History Surgical History History of tonsillectomy and adenoidectomy S/P thymectomy Tobacco Smoking/Tobacco Use Status: Never Alcohol Alcohol Intake: current Alcohol intake frequency: holidays/special occasions only Substance Use Substance use: Never Substance use type: does not use Vital Signs and Lab Results Vital Signs Most Recent Vital Signs in EMR: Temp Pulse Resp BP Pulse Ox 36.8 C 97 H 18 146/89 H 97 04/22/23 07:00 04/22/23 07:00 04/22/23 07:00 04/22/23 07:00 04/22/23 07:00 Lab Results Blood Type / Crossmatch: No Data to Display Complete Blood Count: White Blood Count 9.08 10^3/uL (4.4-10.8) 04/12/23 11:35 Red Blood Count 4.27 10^6/uL (3.93-5.22) 04/12/23 11:35 Hemoglobin 12.2 g/dL (11.2-15.7) 04/12/23 11:35 Hematocrit 37.9 % (36.0-46.0) 04/12/23 11:35 Platelet Count 404 10^3/uL (130-400) H 04/12/23 11:35 Complete Metabolic Panel: No Data to Display Liver Function Panel: No Data to Display Coagulation Panel: No Data to Display Cardiac Panel: No Data to Display Arterial Blood Gas: No Data to Display Venous Blood Gas: No Data to Display Pancreas Panel: No Data to Display Thyroid Panel: No Data to Display Infectious Disease: No Data to Display Blood Cultures: No Data to Display Toxicology Panel: No Data to Display Imaging and Studies Imaging and Studies Study information below may be from another EMR and interpreted by another provider. Please see original notes in EMR for more complete details. Echocardiogram Summary: 07/22: LVEF 55%, no sig valve lesions. Pulmonary Function Summary: 04/27: normal. Anesthesia Assessment and Plan Anesthesia History Personal History: No History of Anesthesia Complications Family History: No Family History of Anesthesia Complications Exercise Tolerance Exercise Tolerance: Metabolic Equivalents>4 Cardiac & Pulmonary Exam Cardiac Exam: Normal S1/S2 Heart Sounds Pulmonary Exam: Clear Bilateral Breath Sounds Implantable Cardiac Device Does patient have a Pacemaker or an ICD?: No Airway Exam Known Difficult Airway: No Mallampati Class: 4 Mouth Opening: Narrow (< 3cm) Thyromental Distance: Less than 3 cm Neck Range of Motion: Full ROM Neck Circumference: Normal Teeth Condition: Normal Dentition ASA Classification ASA Score: ASA 2 Emergency Case?: No NPO Status NPO Status: NPO Clears >2 hours, Solids >8 hours Anesthesia Plan Resuscitation Status: Full Code Anesthesia Technique: General Anesthesia Airway Planned: Natural Airway Monitors Used: Standard Monitors Preoperative Comments:: 72 yo female for colo. Sig PMHx: HTN, asthma (adviar, ipratropium, levalbuterol, montelukast - has not taken her inhalers in a week, states that she doesn't need them unless she has s cough/cold, she feels well today and her breathing is good), pulmonary nodule, chronic cough, GERD, migraines, never smoker, occ EtOH.
[2023-04-22 07:00] VITALS: BP 146/89; PULSE 97; RESP 18; TEMP 36.8; O2SAT 97
[2023-04-22] MEDS: Lactated Ringers 1,000 ML 80 ML IV (07:39)
[2023-04-22 07:41] VITALS: BMI 29.6
--- NOTE | 2023-04-22 08:12 | W.COLOREPORT ---
Date of service: 04/22/23 Time of Service: 08:22 Colonoscopy Report Procedure Description: PROCEDURES PERFORMED: 1. Colonoscopy with hot snare polypectomy x 2 2. Endoscopic clip placement/apply 3. Endoscopic submucosal injection PREOPERATIVE DIAGNOSIS: Screening colonoscopy POSTOPERATIVE DIAGNOSIS: Mild sigmoid diverticulosis, colon polyps SURGEON: Jacqueline Elias MD INDICATION FOR PROCEDURE: 72-year-old woman has never had a colonoscopy before. She has no symptoms or concerns. She has no family history of colon cancer. FINDINGS: Terminal ileum was normal. In the descending colon a 10-12 mm sessile polyp was removed with hot snare technique. In the sigmoid colon at about 35 cm, a large, pedunculated, 2-3 cm polyp was noted. It has the appearance of being a possible malignant polyp. This was removed with hot snare technique. The mucosal defect was quite large on the stock and a clip was placed to approximate the edges of the mucosa. About 2 cm distal to the polyp, submucosal injection was performed tattooing a location absolutely distal for potential surgical management if needed. No significant hemorrhoidal disease. SURVEILLANCE interval/FOLLOW-UP: Reassess polypectomy site in 3 months with a flexible sigmoidoscopy as long as pathology does not show carcinoma. SPECIMENS: Yes EBL: Minimal COMPLICATIONS: None QUALITY of prep: Excellent Procedure in detail: The patient gave written consent and was in agreement with the indications, the potential risks as well as the benefits of the procedure. They were taken to the endoscopy suite and laid in the left lateral decubitus position. A timeout was performed and anesthesia was administered which was tolerated well. I started the procedure. Digital rectal and visual examination was performed and grossly within normal limits. A well-lubricated flexible colonoscope was then introduced and passed without any notable difficulty all the way to the cecum identified by the ileocecal valve and the appendiceal orifice. The terminal ileum was intubated and looked normal. The scope was then slowly withdrawn with the above-noted findings. The patient tolerated the procedure well and was taken to the PACU in hemodynamically stable condition.
--- NOTE | 2023-04-22 08:23 | W.PM.DSUDISC ---
Date of service: 04/22/23 Time of Service: 08:23 Discharge Plan Disposition Patient Disposition: Home Condition: Good Discharge Details Attending Provider: Perry Elias Primary Care Provider: Ave Lai Home Meds and New Rx's Prescriptions: No Action fluticasone propion-salmeterol [Advair HFA] 115-21 mcg/actuation HFA aerosol inhaler 2 puff inhalation BID Qty: 12 12RF ipratropium bromide 21 mcg (0.03 %) spray,non-aerosol 2 spray intranasal BID Rx Instructions: administer into each nostril montelukast 10 mg tablet 10 mg PO DAILY PRN vitamin B complex Tablet 1 tab PO DAILY magnesium oxide 400 mg (241.3 mg magnesium) tablet 250 mg PO DAILY efoyaxa-boqk-buudg-oreg-capryl 100 mg-150 mg- 50 mg-150 mg capsule 1 cap PO DAILY bisacodyl [Dulcolax (bisacodyl)] 5 mg tablet,delayed release (DR/EC) 5 mg PO ONCE Qty: 4 0RF Rx Instructions: take per colonoscopy instructions trazodone 50 MG tablet 50 mg PO HS Zyrtec 10 MG capsule 10 mg PO HS benzonatate 100 mg capsule 100 mg PO BID-TID PRN levalbuterol tartrate [Xopenex HFA] 45 mcg/actuation HFA aerosol inhaler 2 inh inhalation Q6H prednisone 10 mg tablet 10 mg PO DAILY PRN Rx Instructions: Tapers as needed buspirone 10 mg tablet 10 mg PO BID PRN triamcinolone acetonide [Nasacort] 55 mcg aerosol,spray 2 spray intranasal DAILY Qty: 51 4RF Rx Instructions: administer into each nostril aspirin 81 mg tablet,delayed release (DR/EC) 81 mg PO DAILY Qty: 30 0RF Discharge Instructions Additional Instructions: FINDINGS: The large polyp which was found and removed today was quite advanced/serious. It may even have cancer in it. We will find that out in a week or so after pathology comes back. This will dictate our next steps but at minimum, you will need to have another scope in 3 months to reassess the site where this was removed. Mild diverticular changes are present in your colon. This is completely benign and extremely common and nothing needs to be done about that. Stand Alone Forms: Colonoscopy Post Instructions Activity:: Activity as Tolerated Diet:: As Tolerated
--- NOTE | 2023-04-22 08:41 | BOWEL_PTH ---
PATIENT: Elana Richmond LOC: [facility] U#:[id number] AGE/SX: 72/F ROOM: RE04/22/[address]: Perry Elias : 1950 BED: DIS: 04/22/2023 SPEC #: [id number] RECD: 04/22/23 12:47 STATUS: [facility] #: [id number] JOYCE: 04/22/23 08:[address]: Perry Elias DEPT: Surgical Specimen RECD BY: Ramila Del Rosario ENTERED: 04/22/23 12:48 SP TYPE: Bowel OTHR DR: Ave Lai Tissues: 1 - BIOPSY BOWEL 2 - BIOPSY BOWEL Procedures: GROSS AND MICRO LEVEL 4 Comments: [id number]
[2023-04-22] MEDS: Endoscopic Tattoo 5 ML SYR IJ (08:50)
[2023-04-22 09:06] VITALS: BP 125/83; PULSE 86; RESP 17; TEMP 36.1; O2SAT 98
--- NOTE | 2023-04-22 09:30 | W.ANESPOSTOP ---
Postoperative Evaluation Date, Time and Location Date Performed: 04/22/23 Time Performed: 09:15 Patient Location: Day Surgery Unit Vital Signs Most Recent Imported Vital Signs: Most Recent Vital Signs Temp Pulse Resp BP Pulse Ox 36.1 C L 86 17 125/83 98 04/22/23 09:06 04/22/23 09:06 04/22/23 09:06 04/22/23 09:06 04/22/23 09:06 Pain Score Most Recent Pain Score: Most Recent Pain Score Pain Level 0 04/22/23 09:06 Assessment Mental Status: Awake (Alert & Oriented to Patient Baseline) Airway and Respiratory Function: Patent airway with normal (patient baseline) respiratory exam Cardiovascular Function: Hemodynamically Stable Hydration Status: Adequately Hydrated Nausea & Vomiting: No Nausea or Vomiting Pain: Pt. Denies Any Pain Peripheral Nerve Block: Patient did not receive a nerve block
[2023-04-22 09:40] VITALS: BP 134/94; PULSE 77; RESP 16; TEMP 36; O2SAT 98
== END 2023-04-22 10:15 | disposition home or self-care (01) ==
PROVIDERS: PCP Nurse Practitioner Family; Visit Provider Student in an Organized Health Care Education/Training Program
PROC: 0DJD8ZZ Inspection of Lower Intestinal Tract, Via Natural or Artificial Opening Endoscopic (ICD-10-PCS; CPT 45378; principal; 2023-04-22 08:15)
DX: Z12.11 Encounter for screening for malignant neoplasm of colon (principal); D37.4 Neoplasm of uncertain behavior of colon; K57.30 Diverticulosis of large intestine without perforation or abscess without bleeding; K21.9 Gastro-esophageal reflux disease without esophagitis; E66.9 Obesity, unspecified; I10 Essential (primary) hypertension; D12.5 Benign neoplasm of sigmoid colon
CPT/HCPCS: 45381; 45385; 00123; 88305; J2704

== ENCOUNTER → 2023-05-03 12:58 | Outpatient (BNVA) | payer MEDICARE, BC, SELFPAY | PROVIDERS: PCP Nurse Practitioner Family; Referring Provider Nurse Practitioner Family; Visit Provider Student in an Organized Health Care Education/Training Program | DX: Z48.815 Encounter for surgical aftercare following surgery on the digestive system (principal) | CPT/HCPCS: 99213 ==

== ENCOUNTER → 2023-05-16 09:02 | Outpatient (BNVA) | payer MEDICARE, BC, SELFPAY | PROVIDERS: PCP Nurse Practitioner Family; Referring Provider Nurse Practitioner Family; Visit Provider Physician Assistant Surgical | DX: J45.909 Unspecified asthma, uncomplicated (principal); R91.1 Solitary pulmonary nodule | CPT/HCPCS: 36415; 99214 ==

== ENCOUNTER 2023-05-16 10:29 | Outpatient (REF) | payer MEDICARE, BC, SELFPAY ==
[2023-05-17 09:53] LABS: IgA 47 mg/dL (85-499); IgG 573 mg/dL (610-1616); IgM 568 mg/dL (35-242)
[2023-05-17 16:06] LABS: Immunoglobulin Subclass IgG4 7.5 mg/dL
== END 2023-05-16 10:30 | disposition home or self-care (01) ==
LOC: LBN 10:29
PROVIDERS: PCP Nurse Practitioner Family; Visit Provider Physician Assistant Surgical
DX: B99.9 Unspecified infectious disease (principal)
CPT/HCPCS: 82784; 82787

== ENCOUNTER 2023-05-19 04:44 | Outpatient (CLI) | payer MEDICARE, BC, SELFPAY ==
[2023-05-19 21:53] LABS: Rheumatoid Factor <8.6 IU/mL (<12.0)
[2023-05-20 09:06] LABS: Cyclic Citrullinated Peptide <2.5 U/mL (<5.0)
[2023-05-20 14:28] LABS: ANA Interpretation Negative (Negative)
== END 2023-05-19 04:45 | disposition home or self-care (01) ==
LOC: LBO 04:44
PROVIDERS: PCP Nurse Practitioner Family; Visit Provider Physician Assistant Surgical
DX: D84.9 Immunodeficiency, unspecified (principal); J45.909 Unspecified asthma, uncomplicated
CPT/HCPCS: 36415; 86200; 82784; 82787; 86038; 86431

== ENCOUNTER → 2023-06-27 09:16 | Outpatient (BNVA) | payer MEDICARE, BC, SELFPAY | PROVIDERS: PCP Nurse Practitioner Family; Referring Provider Nurse Practitioner Family; Visit Provider Physician Assistant Surgical | DX: J45.909 Unspecified asthma, uncomplicated (principal); R91.1 Solitary pulmonary nodule | CPT/HCPCS: 99214 ==

== ENCOUNTER → 2023-09-08 08:56 | Outpatient (BNVA) | payer MEDICARE, BC, SELFPAY | PROVIDERS: PCP Nurse Practitioner Family; Referring Provider Nurse Practitioner Family; Visit Provider Student in an Organized Health Care Education/Training Program | DX: R91.1 Solitary pulmonary nodule (principal); J45.909 Unspecified asthma, uncomplicated | CPT/HCPCS: 99214 ==

== ENCOUNTER 2023-10-04 09:45 | Day surgery (SDC) | payer MEDICARE, BC, SELFPAY ==
--- NOTE | 2023-10-04 06:41 | W.ANESPRE ---
General Info Date of Service Date Performed: 10/04/23 Height: 5 ft 2 in Weight: 72 kg Body Mass Index (BMI): 29.0 Surgical Procedure: Operation Date: 10/04/23 11:25 Proposed Procedure Side Surgeon p Flexible Sigmoidoscopy Perry Elias MD Meds Allergies and Home Medications Allergies Allergy/AdvReac Type Severity Reaction Status Date / Time albuterol [From Combivent] Allergy Severe Verified 04/22/23 07:22 tiotropium Allergy Severe Verified 04/22/23 07:22 [From Spiriva with HandiHaler] umeclidinium Allergy Severe high BP, Verified 04/22/23 07:22 [From Incruse Ellipta] headache, elevated pulse amlodipine Allergy Intermediate Verified 04/22/23 07:22 iodine Allergy Intermediate rash Verified 04/22/23 07:22 neomycin Allergy Intermediate Verified 04/22/23 07:22 Iodinated Contrast Media Allergy Unknown Verified 04/22/23 07:22 epinephrine AdvReac Severe Bradycardia Verified 04/22/23 07:22 Home Medication Medication Instructions Recorded cetirizine 10 mg capsule (Zyrtec) 10 mg PO HS 12/31/15 trazodone 50 mg tablet 50 mg PO HS 12/31/15 aspirin 81 mg tablet,delayed 81 mg PO DAILY #30 tabs 08/02/19 release levalbuterol tartrate 45 2 inh inhalation Q6H 10/31/20 mcg/actuation aerosol inhaler (Xopenex HFA) ipratropium bromide 21 mcg (0.03 2 spray intranasal BID 04/27/22 %) nasal spray montelukast 10 mg tablet 10 mg PO DAILY PRN 04/27/22 vitamin B complex 1 tab PO DAILY 04/27/22 magnesium oxide 400 mg (241.3 mg 250 mg PO DAILY 06/28/22 magnesium) tablet triamcinolone acetonide 55 mcg 2 spray intranasal DAILY #51 mL 12/21/22 nasal spray aerosol (Nasacort) turmeric 100 mg-leonard 150 1 cap PO DAILY 04/11/23 mg-olive 50 mg-oreg 150 mg-capryl capsule mometasone-formoterol HFA 50 mcg-5 2 puff inhalation Q12H #13 grams 05/16/23 mcg/actuation aerosol inhaler (Dulera) benzonatate 100 mg capsule 100 mg PO BID-TID PRN cough #30 09/08/23 caps prednisone 20 mg tablet 20 mg PO DAILY #5 tabs 09/08/23 azithromycin 250 mg tablet See Rx Instructions PO .COMPLEX PRN 10/03/23 Current Visit Medications: Current Medications Generic Name Dose Route Start Last Admin Trade Name Freq PRN Reason Stop Dose Admin Ringer's Solution 1,000 mls @ 80 mls/hr 10/04/23 06:00 IV 11/02/23 23:59 INFUSION FELI IV Miscellaneous Supplies 1 each 10/04/23 06:00 Iv Access IV 11/02/23 23:59 DIRECTED FELI Sodium Biphosphate/Sodium Phosphate 133 ml 10/04/23 06:00 Na Phosphate Enema-Adult [address] 10/04/23 16:00 DIRECTED FELI Sodium Biphosphate/Sodium Phosphate 133 ml 10/04/23 06:00 Na Phosphate Enema-Adult [address] 10/04/23 16:00 DIRECTED FELI Sodium Chloride 0 ml 10/04/23 06:00 Normal Saline Flush 10 Ml Syr IV 11/02/23 23:59 PRN PRN Sodium Chloride 0 ml 10/04/23 06:00 Normal Saline 10 Ml Vial IJ 11/02/23 23:59 DIRECTED PRN Sterile Water 0 ml 10/04/23 06:00 Water,Injection,Sterile 10 Ml Vial IJ 11/02/23 23:59 DIRECTED PRN PFSH Active Problems Active Problems: Problem Status Onset Code Reactive airway disease J45.909 Osteoarthritis of carpometacarpal (CMC) joint of right thumb M18.11 Mass of left foot R22.42 Degenerative joint disease of right knee M17.11 Tear of lateral meniscus of right knee S83.281A Postnasal drip R09.82 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 Pulmonary nodule/lesion, solitary R91.1 Asymptomatic microscopic hematuria R31.21 Knee pain M25.569 Otitis externa, left H60.92 Conductive hearing loss of both ears H90.0 Acute serous otitis media, bilateral H65.03 Acute suppurative otitis media with spontaneous rupture of ear drum, recurrent, left ear H66.015 Dyspepsia R10.13 Dysphagia R13.10 Right upper quadrant abdominal pain R10.11 Hemorrhoids K64.9 Memory impairment R41.3 Screening for colon cancer Z12.11 Patellar tendonitis of left knee M76.52 Hamstring tendonitis of left thigh M76.892 Tinnitus, bilateral H93.13 Allergic rhinitis due to allergen J30.9 Migraine headache without aura G43.009 Ocular migraine G43.109 Migraines G43.909 Hypokalemia E87.6 Transient global amnesia G45.4 Altered mental status R41.82 Medical History Medical History (Updated 10/04/23 @ 10:53 by Perry Elias MD) Otalgia Tympanic membrane perforation Pain of right thumb Raynaud disease Hyperlipidemia Anxiety and depression Obesity Pulmonary nodule Dyspareunia Microscopic hematuria Hypertension Seasonal allergies Insomnia Chronic cough Thymoma GERD (gastroesophageal reflux disease) Hiatal hernia Surgical History Surgical History (Updated 10/03/23 @ 12:02 by Diana Amaya RN) H/O section History of colonoscopy (~04/2023) path sent History of tonsillectomy and adenoidectomy S/P thymectomy Tobacco Smoking/Tobacco Use Status: Never Alcohol Alcohol Intake: current Alcohol intake frequency: holidays/special occasions only Substance Use Substance use: Never Substance use type: does not use Vital Signs and Lab Results Vital Signs Most Recent Vital Signs in EMR: Temp Pulse Resp BP Pulse Ox 36.0 C L 80 16 148/88 H 97 10/04/23 10:06 10/04/23 10:06 10/04/23 10:06 10/04/23 10:06 10/04/23 10:06 Lab Results Blood Type / Crossmatch: No Data to Display Complete Blood Count: No Data to Display Complete Metabolic Panel: No Data to Display Liver Function Panel: No Data to Display Coagulation Panel: No Data to Display Cardiac Panel: No Data to Display Arterial Blood Gas: No Data to Display Venous Blood Gas: No Data to Display Pancreas Panel: No Data to Display Thyroid Panel: No Data to Display Infectious Disease: No Data to Display Blood Cultures: No Data to Display Toxicology Panel: No Data to Display Imaging and Studies Imaging and Studies Study information below may be from another EMR and interpreted by another provider. Please see original notes in EMR for more complete details. Echocardiogram Summary: 07/22: LVEF 55%, no sig valve lesions. Pulmonary Function Summary: 04/27: normal. Anesthesia Assessment and Plan Anesthesia History Personal History: No History of Anesthesia Complications Family History: No Family History of Anesthesia Complications Exercise Tolerance Exercise Tolerance: Metabolic Equivalents>4 Cardiac & Pulmonary Exam Cardiac Exam: Normal S1/S2 Heart Sounds Pulmonary Exam: Clear Bilateral Breath Sounds Implantable Cardiac Device Does patient have a Pacemaker or an ICD?: No Airway Exam Known Difficult Airway: No Mallampati Class: 4 Mouth Opening: Narrow (< 3cm) Thyromental Distance: Less than 3 cm Neck Range of Motion: Full ROM Neck Circumference: Normal Teeth Condition: Normal Dentition ASA Classification ASA Score: ASA 2 Emergency Case?: No NPO Status NPO Status: NPO Clears >2 hours, Solids >8 hours Anesthesia Plan Resuscitation Status: Full Code Anesthesia Technique: General Anesthesia Airway Planned: Natural Airway Monitors Used: Standard Monitors Preoperative Comments:: 72 yo female for colo. Sig PMHx: HTN, asthma/RAD, pulmonary nodule, chronic cough, GERD, migraines, never smoker, occ EtOH. Mgus (followed by [facility] [place]). Previous Anes: - colo, prop, natural airway, no issues.
[2023-10-04 10:06] VITALS: BP 148/88; PULSE 80; RESP 16; TEMP 36; O2SAT 97
[2023-10-04] MEDS: Lactated Ringers 1,000 ML 80 ML IV (10:17)
[2023-10-04] MEDS: Na Phosphate Enema-Adult 133 ML BTL PR (10:19)
--- NOTE | 2023-10-04 10:51 | SCONE_ITS ---
Date of service: 10/04/23 Time of Service: 10:52 Assessment and Plan Assessment and plan (1) Colon polyp: Status: Acute Assessment and plan: 73-year-old woman with prior high-grade dysplasia polyps that got removed in need of surveillance of the polypectomy sites to ensure no regrowth. Overall plan: Flexible sigmoidoscopy History of Present Illness Narrative: 73-year-old woman is here to reassess polypectomy sites from 6 months ago. She had high-grade dysplasia in 2 separate polyps. They were in the distal descen ding colon and the sigmoid colon. This is routine, to ensure no regrowth, and she is not having any symptoms. PFSH All Active Problems (Updated 10/04/23 @ 10:53 by Perry Elias MD) Colon polyp (Acute) Reactive airway disease (Acute) Osteoarthritis of carpometacarpal (CMC) joint of right thumb (Acute) Mass of left foot (Acute) Degenerative joint disease of right knee (Acute) Tear of lateral meniscus of right knee (Acute) Postnasal drip (Acute) Hui angioma (Acute) Pulmonary nodule/lesion, solitary (Acute) Asymptomatic microscopic hematuria (Acute) Knee pain (Acute) Otitis externa, left (Acute) Conductive hearing loss of both ears (Acute) Acute serous otitis media, bilateral (Acute) Acute suppurative otitis media with spontaneous rupture of ear drum, recurrent, left ear (Acute) Dyspepsia (Acute) Dysphagia (Acute) Right upper quadrant abdominal pain (Acute) Hemorrhoids (Acute) Memory impairment (Acute) Screening for colon cancer (Acute) Patellar tendonitis of left knee (Acute) Hamstring tendonitis of left thigh (Acute) Tinnitus, bilateral (Acute) Allergic rhinitis due to allergen (Acute) Migraine headache without aura (Acute) Ocular migraine (Acute) Migraines (Chronic) Hypokalemia (Acute) Transient global amnesia (Acute) Altered mental status (Acute) Medical History (Updated 10/04/23 @ 10:53 by Perry Elias MD) Otalgia Tympanic membrane perforation Pain of right thumb Raynaud disease Hyperlipidemia Anxiety and depression Obesity Pulmonary nodule Dyspareunia Microscopic hematuria Hypertension Seasonal allergies Insomnia Chronic cough Thymoma GERD (gastroesophageal reflux disease) Hiatal hernia Surgical History H/O section History of colonoscopy (~04/2023) path sent History of tonsillectomy and adenoidectomy S/P thymectomy Social History Smoking/Tobacco Use Status: Never Smoking risk assessment performed?: Yes Alcohol Intake: current Alcohol Intake frequency: holidays/special occasions only Drug use: Never Substance use type: does not use Household members: spouse Housing: house Current gender identity: female Do you feel safe at home: Yes Do you feel safe in your relationship?: Yes Exam Narrative Exam Narrative: General: Nontoxic, comfortable and interactive Neuro: Alert and oriented x 3 Psych: Good mood and affect, good insight and understand her condition Chest: Nonlabored breathing, no wheezing Heart: Regular Results Last Vital Signs Temp 96.8 F L 10/04/23 10:06 Pulse 80 10/04/23 10:06 Resp 16 10/04/23 10:06 BP 148/88 H 10/04/23 10:06 Pulse Ox 97 10/04/23 10:06
[2023-10-04 10:55] VITALS: BMI 29.0
--- NOTE | 2023-10-04 11:20 | BOWEL_PTH ---
PATIENT: Elana Richmond LOC: [facility] U#:[id number] AGE/SX: 73/F ROOM: RE10/04/[address]: Perry Elias : 1950 BED: DIS: 10/04/2023 SPEC #: [id number] RECD: 10/04/23 13:10 STATUS: [facility] #: [id number] JOYCE: 10/04/23 11:[address]: Perry Elias DEPT: Surgical Specimen RECD BY: Ramila Del Rosario ENTERED: 10/04/23 13:10 SP TYPE: Bowel OTHR DR: Ave Lai Tissues: 1 - BIOPSY BOWEL Procedures: GROSS AND MICRO LEVEL 4 Comments: [id number]
[2023-10-04 11:29] VITALS: BP 110/78; PULSE 72; RESP 16; TEMP 36.3; O2SAT 98
[2023-10-04 11:30] VITALS: BP 126/87; PULSE 75; RESP 17; TEMP 36.4; O2SAT 99
--- NOTE | 2023-10-04 11:40 | ROE_ITS ---
Date of service: 10/04/23 Time of Service: 11:40 Operative Note Operative Note Refer to Anesthesia Record Procedure Description: Procedures performed: 1. Sigmoidoscopy with cold forceps biopsies Preoperative diagnosis: High-grade dysplasia colon polyps Postoperative diagnosis: Diverticulosis in the sigmoid colon, grade 1 internal hemorrhoids, moderate external hemorrhoids Surgeon: Jacqueline Elias MD Indication for procedure: 73-year-old woman due for surveillance because of 2 high-grade polyps removed from her colon on last colonoscopy 6 months ago. Findings: Scope performed up to 80 cm. The descending colon was free of any new polyps. There is no evidence of regrowth. In the sigmoid colon diverticular disease is noted. The tattoo site was easily found. There is no evidence of regrowth anywhere within the vicinity proximal to the tattoo site or at the tattoo site. I biopsied 1 small area in the region that looked like it was either some scar from the resection or just a inflammatory area near dive rticuli. It did not look like a polyp. Internal hemorrhoids noted on retroflexion and moderate external hemorrhoids are present. Surveillance interval/follow-up: Pending pathology results of the biopsy being free from any polyp disease. She should repeat a full colonoscopy 3 years from the last colonoscopy (April 2026). Specimens: yes Estimated blood loss: Minimal Complications: None Quality of prep: Excellent Procedure in detail: The patient gave written consent and was in agreement with the indications, the potential risks as well as the benefits of the procedure. They were taken to the endoscopy suite and laid in the left lateral decubitus position. A timeout was performed and anesthesia was administered which was tolerated well. I started the procedure. Digital rectal and visual examination was performed and grossly within normal limits. A well-lubricated flexible colonoscope was then introduced and passed without any notable difficulty all the way to the splenic flexure (70-80 cm) and then slowly withdrawn. Findings noted above. The patient tolerated the procedure well and was taken to the PACU in hemodynamically stable condition.
--- NOTE | 2023-10-04 11:40 | W.ANESPOSTOP ---
Postoperative Evaluation Date, Time and Location Date Performed: 10/04/23 Time Performed: 11:40 Patient Location: Day Surgery Unit Vital Signs Most Recent Imported Vital Signs: Most Recent Vital Signs Temp Pulse Resp BP Pulse Ox 36.3 C L 72 16 110/78 98 10/04/23 11:29 10/04/23 11:29 10/04/23 11:29 10/04/23 11:29 10/04/23 11:29 Pain Score Most Recent Pain Score: Most Recent Pain Score Pain Level 0 10/04/23 10:06 Assessment Mental Status: Awake (Alert & Oriented to Patient Baseline) Airway and Respiratory Function: Patent airway with normal (patient baseline) respiratory exam Cardiovascular Function: Hemodynamically Stable Hydration Status: Adequately Hydrated Nausea & Vomiting: No Nausea or Vomiting Pain: Pt. Denies Any Pain Peripheral Nerve Block: Patient did not receive a nerve block
--- NOTE | 2023-10-04 11:44 | W.PM.DSUDISC ---
Date of service: 10/04/23 Time of Service: 11:44 Discharge Plan Disposition Patient Disposition: Home Condition: Good Discharge Details Attending Provider: Perry Elias Primary Care Provider: Ave Lai Home Meds and New Rx's Prescriptions: No Action ipratropium bromide 21 mcg (0.03 %) spray,non-aerosol 2 spray intranasal BID Rx Instructions: administer into each nostril montelukast 10 mg tablet 10 mg PO DAILY PRN vitamin B complex Tablet 1 tab PO DAILY magnesium oxide 400 mg (241.3 mg magnesium) tablet 250 mg PO DAILY prednisone 20 mg tablet 20 mg PO DAILY Qty: 5 0RF Rx Instructions: Prior to cataract surgery for cough benzonatate 100 mg capsule 100 mg PO BID-TID PRN (Reason: cough) Qty: 30 0RF fqxspwap-wuxz-yeilb-oreg-capry 100 mg-150 mg- 50 mg-150 mg capsule 1 cap PO DAILY Dulera 50-5 mcg/actuation HFA aerosol inhaler 2 puff inhalation Q12H Qty: 13 12RF trazodone 50 MG tablet 50 mg PO HS Zyrtec 10 MG capsule 10 mg PO HS levalbuterol tartrate [Xopenex HFA] 45 mcg/actuation HFA aerosol inhaler 2 inh inhalation Q6H triamcinolone acetonide [Nasacort] 55 mcg aerosol,spray 2 spray intranasal DAILY Qty: 51 4RF Rx Instructions: administer into each nostril aspirin 81 mg tablet,delayed release (DR/EC) 81 mg PO DAILY Qty: 30 0RF azithromycin 250 mg tablet See Rx Instructions PO .COMPLEX PRN Rx Instructions: For 250 mg dose pack: take 500 mg today (day 1), then 250 mg for 4 days (days 2-5) orally PRN; Discharge Instructions Additional Instructions: FINDINGS: Everything looked good. Repeat another colonoscopy in the winter 2026 (3 years). Activity:: Activity as Tolerated Diet:: As Tolerated DS: Diagnosis Discharge Diagnosis (1) Colon polyp: Status: Acute
== END 2023-10-04 12:05 | disposition home or self-care (01) ==
PROVIDERS: PCP Nurse Practitioner Family; Visit Provider Student in an Organized Health Care Education/Training Program
PROC: 0DJD8ZZ Inspection of Lower Intestinal Tract, Via Natural or Artificial Opening Endoscopic (ICD-10-PCS; CPT 45330; principal; 2023-10-04 11:15)
DX: K63.5 Polyp of colon (principal); I10 Essential (primary) hypertension; K57.30 Diverticulosis of large intestine without perforation or abscess without bleeding; K64.0 First degree hemorrhoids; K64.8 Other hemorrhoids; K63.89 Other specified diseases of intestine; Z12.11 Encounter for screening for malignant neoplasm of colon
CPT/HCPCS: 45331; 00123; 88305; J2704

== ENCOUNTER 2023-12-13 11:32 | Outpatient (REF) | payer MEDICARE, BC, SELFPAY ==
[2023-12-13 16:57] LABS: ALT 24 U/L (14-59); AST 14 U/L (15-37); Albumin 3.7 g/dL (3.4-5.0); Alkaline Phosphatase 81 U/L (46-116); Anion Gap 6.8 mmol/L (3-11); BUN 12 mg/dL (7-18); Bilirubin, Total 0.76 mg/dL (0.2-1.0); CO2 30.2 mmol/L (21.0-32.0); CREATININE 0.7 mg/dL (0.55-1.02); Calcium 9.2 mg/dL (8.5-10.1); Calculated LDL 144 mg/dL (<100); Chloride 104 mmol/L (98-107); Cholesterol 248 mg/dL (<200); Estimated GFR 91.26 (mL/min/1.73m2); Glucose 90 mg/dL (74-106); HDL Cholesterol 92 mg/dL (40-60); Potassium 4.1 mmol/L (3.5-5.1); Sodium 141 mmol/L (136-145); Total Protein 6.8 g/dL (6.4-8.2); Triglyceride 63 mg/dL (<150)
[2023-12-13 17:09] LABS: Bilirubin Negative (Negative); Blood Negative (Negative); Clarity Clear (Clear); Glucose Negative (Negative); Ketones Negative (Negative); Leukocyte Esterase Negative (Negative); Nitrite Negative (Negative); Specific Gravity 1.015 (1.005-1.025); Urobilinogen 0.2 mg/dL (Up to 0.2); pH 5.5 (5-8)
[2023-12-13 17:22] LABS: COMMENT (LAB VIEW ONLY) 54.53 mg/dL
== END 2023-12-13 11:33 | disposition home or self-care (01) ==
LOC: NCHCN 11:32
PROVIDERS: PCP Nurse Practitioner Family; Visit Provider Nurse Practitioner Family
DX: I10 Essential (primary) hypertension (principal); R31.21 Asymptomatic microscopic hematuria
CPT/HCPCS: 80053; 80061; 81003; 82043; 82570

== ENCOUNTER 2023-12-29 02:16 | Outpatient (CLI) | payer MEDICARE, BC, SELFPAY ==
--- NOTE | 2023-12-29 12:22 | DI.MAMMO_ITS ---
Exam(s) MAMMO SCREENING EXAM: MAMMO SCREENING CLINICAL HISTORY: SCREENING, Z13.31 TECHNIQUE: Bilateral full field digital CC and MLO mammographic images were obtained with 3D tomosyn thesis and utilizing computer aided detection (CAD). COMPARISON: Available for comparison. FINDINGS: Masses/Architectural Distortion: None seen. Microcalcifications: No suspicious pleomorphic-type are seen. Skin Thickening/Nipple Retraction: None. IMPRESSION: 1. No significant interval change with no specific features of malignancy noted. 2. Unless there is more urgent need, screening mammography is recommended, as per [employer] guidelines. BI-RADS Category 1 - Negative Breast Density - Category C - Heterogeneously dense Breast density category C or D implies that the patient has dense breast tissue. Dense breast tissue is very common and is not abnormal but dense breast tissue can make it harder to find cancer on a ma mmogram. Also, dense breast tissue may increase their breast cancer risk. This information about the result of the mammogram report was provided to the patient to raise their awareness. Use this report when you speak with the patient about their risks for breast cancer, which includes their family hist ory. At that time, you may recommend for more screening tests (Ultrasound or MRI) as they might be us eful based on their risk. A negative radiographic report should not delay biopsy if a dominant or clinically suspicious mass is present. Up to ten percent of cancers are not identified on mammography. A negative report may reinforce clinical impression. Adenosis and dense breasts may obscure an underlying neoplasm. False positive reports average 6 to 10%. Patient will receive a letter notifying them of these results.
== END 2023-12-29 02:36 ==
LOC: DI 02:17
PROVIDERS: PCP Nurse Practitioner Family; Visit Provider Nurse Practitioner Family
DX: Z12.31 Encounter for screening mammogram for malignant neoplasm of breast (principal)
CPT/HCPCS: 77063; 77067

== ENCOUNTER 2023-12-30 01:18 | Outpatient (CLI) | payer MEDICARE, BC, SELFPAY ==
--- NOTE | 2023-12-30 | DI.CT_ITS ---
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 TECHNIQUE: Multi planar reconstructions were performed. CONTRAST MATERIAL: Omnipaque 350; 75 cc COMPARISON: CT CT CHEST WO from 06/24/2022 FINDINGS: CHEST: LUNGS: Previously described benign-appearing fissure related 6 mm nodule in the right lung is again n oted, unchanged. Another smaller 4 millimeter nodule in the anterior segment of the right upper lobe which is probably also fissure related also remain stable. A tiny 1-2 millimeter calcified granulom a in the right lower lobe is again noted. No significant nodules in the left lung. No new nodules o n either side. No confluent infiltrates nor pleural effusions. No significant findings in the trach ea and mainstem bronchi. MEDIASTINUM: There is no hilar nor mediastinal adenopathy. Partially visualized thyroid appears unrem arkable.No significant mediastinal masses. CARDIAC: Heart size is normal. There is no pericardial effusion.Caliber of the thoracic aorta is wit hin normal limits. There is no evidence of aortic dissection. VISUALIZED UPPER ABDOMEN:No adrenal masses. Gallbladder surgically absent. Spleen size normal. OSSEOUS: No fractures. No significant osseous lesions.. IMPRESSION: 1. Compared to prior CT scan of June 2022 there 2 unchanged small nodules in the right lung measurin g 6 and 4 mm and appearing to be fissure related. There are no new lung nodules nor infiltrates nor pleural effusions. 2. No intrathoracic adenopathy. 3. No mediastinal masses evident. RADIATION DOSE DELIVERED: 125.88mGy.cm Total DLP DATA REPOSITORY: All CT scans at this facility are submitted to the National Radiology Data Registry (NRDR) Dose Index Registry (DIR) with the [employer] ([employer]). RADIATION OPTIMIZATION: All CT scans at this facility use at least one of these dose optimization te chniques: automated exposure control; mA and/or kV adjustment per patient size (includes targeted exa ms where dose is matched to clinical indication); or iterative reconstruction.
[2023-12-30] MEDS: Normal Saline - Diluent 50 ML VIAL IJ (14:57)
[2023-12-30] MEDS: Omnipaque 350 MG/ML 100 ML BTL 70 ML IJ (14:58)
== END 2023-12-30 01:38 ==
LOC: DI 01:18
PROVIDERS: PCP Nurse Practitioner Family; Visit Provider Nurse Practitioner Family
DX: D15.0 Benign neoplasm of thymus (principal)
CPT/HCPCS: 71260; J3490

== ENCOUNTER → 2024-03-20 10:15 | Outpatient (BNVA) | payer MEDICARE, BC, SELFPAY | PROVIDERS: PCP Nurse Practitioner Family; Referring Provider Nurse Practitioner Family; Visit Provider Physician Assistant Surgical | DX: J45.909 Unspecified asthma, uncomplicated (principal); R91.1 Solitary pulmonary nodule | CPT/HCPCS: 99214 ==

== ENCOUNTER 2024-07-10 02:31 | Outpatient (CLI) | payer MEDICARE, BC, SELFPAY ==
[2024-07-10 11:10] LABS: Abs Immature Grans 0.02 10^3/uL (0.0-0.06); Absolute Basophil Count 0.04 10^3/uL (0.0-0.2); Absolute Eosinophil Count 0.14 10^3/uL (0.0-0.7); Absolute Lymphocyte Count 2.24 10^3/uL (1.2-3.4); Absolute Monocyte Count 0.44 10^3/uL (0.1-0.8); Absolute Neutrophil Count 3.99 10^3/uL (1.2-6.7); Basophils % 0.6 %; HCT 38.5 % (36.0-46.0); HGB 12.7 g/dL (11.2-15.7); Immature Grans % 0.3 %; Lymphocytes % 32.6 %; MCH 30.2 pg (27.0-33.0); MCV 92 fL (80-95); MPV 9.1 fL (8.0-11.0); Monocytes % 6.4 %; Neutrophils % 58.1 %; Platelet Count 282 10^3/uL (130-400); RDW 13.5 % (11.7-14.6); RDW-SD 45.8 fL; WBC 6.87 10^3/uL (4.4-10.8)
[2024-07-10 12:06] LABS: Iron 78 ug/dL (50-170); Total Iron Binding Capacity 338 ug/dL (250-450); Transferrin Sat 23 % (15-50)
[2024-07-10 12:07] LABS: ALT 24 U/L (14-59); AST 16 U/L (15-37); Albumin 3.4 g/dL (3.4-5.0); Alkaline Phosphatase 87 U/L (46-116); Anion Gap 8.6 mmol/L (3-11); BUN 14 mg/dL (7-18); Bilirubin, Total 0.6 mg/dL (0.2-1.0); CO2 29.4 mmol/L (21.0-32.0); CREATININE 0.9 mg/dL (0.55-1.02); Calcium 9.2 mg/dL (8.5-10.1); Chloride 106 mmol/L (98-107); Estimated GFR 67.08 (mL/min/1.73m2); Glucose 95 mg/dL (74-106); Potassium 4.5 mmol/L (3.5-5.1); Sodium 144 mmol/L (136-145); Total Protein 6.4 g/dL (6.4-8.2)
[2024-07-10 12:18] LABS: Ferritin 19 ng/mL (8-252); TSH (W/Ref FT4) 0.91 uIU/mL (0.36-3.74)
[2024-07-11 10:35] LABS: IgA 40 mg/dL (85-499); IgG 531 mg/dL (610-1616); IgM 554 mg/dL (35-242); Kappa Free Light Chain 1.15 mg/dL (0.33-1.94); Lambda Free Light Chain 7.87 mg/dL (0.57-2.63)
[2024-07-11 16:17] LABS: Albumin g/dL 3.9 g/dL (3.6-5.2); Comment (See Note); Monoclonal Spike 3.6 % (None Seen); Monoclonal Spike g/dL 0.2 g/dL (None Seen); Total Protein 6.4 g/dL (6.3-8.2)
[2024-08-20 08:12] LABS: Immunotyping, Serum (See Note)
== END 2024-07-10 02:32 | disposition home or self-care (01) ==
LOC: LBO 02:31
PROVIDERS: Internal Medicine Hematology & Oncology; PCP Nurse Practitioner Family; Visit Provider Nurse Practitioner Family
DX: D47.2 Monoclonal gammopathy; L65.9 Nonscarring hair loss, unspecified
CPT/HCPCS: 36415; 80053; 82306; 82784; 82652; 82728; 83540; 83550; 83883; 84165; 84443; 85025; 86320

== ENCOUNTER 2024-08-07 02:03 | Outpatient (CLI) | payer MEDICARE, BC, SELFPAY ==
[2024-08-07 08:15] LABS: Calculated LDL 123 mg/dL (<100); Cholesterol 235 mg/dL (<200); HDL Cholesterol 98 mg/dL (>or=50); Triglyceride 70 mg/dL (<150)
== END 2024-08-07 02:04 | disposition home or self-care (01) ==
LOC: LBO 02:03
PROVIDERS: PCP Nurse Practitioner Family; Visit Provider Nurse Practitioner Family
DX: E78.5 Hyperlipidemia, unspecified (principal)
CPT/HCPCS: 80061

== ENCOUNTER 2024-09-25 02:57 | Outpatient (CLI) | payer MEDICARE, BC, SELFPAY ==
[2024-09-25 09:44] LABS: ALT 24 U/L (14-59); AST 13 U/L (15-37); Albumin 3.5 g/dL (3.4-5.0); Alkaline Phosphatase 83 U/L (46-116); BUN 12 mg/dL (7-18); CREATININE 0.9 mg/dL (0.55-1.02); Calcium 8.8 mg/dL (8.5-10.1); Calculated LDL 77 mg/dL (<100); Chloride 105 mmol/L (98-107); Cholesterol 175 mg/dL (<200); Estimated GFR 67.08 (mL/min/1.73m2); Glucose 104 mg/dL (74-106); HDL Cholesterol 86 mg/dL (>or=50); Potassium 4.1 mmol/L (3.5-5.1); Sodium 140 mmol/L (136-145); Total Protein 6.8 g/dL (6.4-8.2); Triglyceride 63 mg/dL (<150)
== END 2024-09-25 02:58 | disposition home or self-care (01) ==
PROVIDERS: PCP Nurse Practitioner Family; Visit Provider Nurse Practitioner Family
DX: E78.5 Hyperlipidemia, unspecified (principal)
CPT/HCPCS: 36415; 80053; 80061

== ENCOUNTER 2025-01-08 09:49 | Outpatient (REF) | payer MEDICARE, BC, SELFPAY ==
[2025-01-08 14:28] LABS: Glucose Negative (Negative)
[2025-01-08 15:08] LABS: COMMENT (LAB VIEW ONLY) 91.51 mg/dL; Microalb ug/mg Crea 5.2 ug/mg Cr
== END 2025-01-08 09:50 | disposition home or self-care (01) ==
LOC: NCHCN 09:49
PROVIDERS: PCP Nurse Practitioner Family; Visit Provider Nurse Practitioner Family
DX: I10 Essential (primary) hypertension (principal)
CPT/HCPCS: 81003; 82043; 82570

== ENCOUNTER 2025-01-15 03:27 | Outpatient (CLI) | payer MEDICARE, BC, SELFPAY ==
[2025-01-15 10:19] LABS: Abs Immature Grans 0.01 10^3/uL (0.0-0.06); HCT 37.8 % (36.0-46.0); HGB 12.3 g/dL (11.2-15.7); Immature Grans % 0.1 %; MCH 28.9 pg (27.0-33.0); MCHC 32.5 % (32.0-36.0); MCV 89 fL (80-95); MPV 8.6 fL (8.0-11.0); Platelet Count 292 10^3/uL (130-400); RBC 4.25 10^6/uL (3.93-5.22); RDW 13.0 % (11.7-14.6); RDW-SD 42.6 fL; WBC 7.47 10^3/uL (4.4-10.8)
[2025-01-15 10:41] LABS: ALT 20 U/L (14-59); AST 15 U/L (15-37); Albumin 3.4 g/dL (3.4-5.0); Alkaline Phosphatase 86 U/L (46-116); Anion Gap 8.0 mmol/L (3-11); BUN 15 mg/dL (7-18); Bilirubin, Total 0.6 mg/dL (0.2-1.0); CO2 30.0 mmol/L (21.0-32.0); Calcium 8.9 mg/dL (8.5-10.1); Chloride 102 mmol/L (98-107); Estimated GFR 77.27 (mL/min/1.73m2); Glucose 91 mg/dL (74-106); Potassium 4.0 mmol/L (3.5-5.1); Sodium 140 mmol/L (136-145); Total Protein 6.5 g/dL (6.4-8.2)
[2025-01-16 09:48] LABS: Kappa Free Light Chain 1.09 mg/dL (0.33-1.94); Lambda Free Light Chain 7.53 mg/dL (0.57-2.63)
[2025-01-16 13:01] LABS: Albumin 60.9 % (55.8-66.1); Albumin g/dL 4.0 g/dL (3.6-5.2); Alpha 1 g/dL 0.30 g/dL (0.15-0.40); Alpha 2 g/dL 0.70 g/dL (0.50-1.00); Beta g/dL 0.70 g/dL (0.60-1.20); Gamma g/dL 0.90 g/dL (0.60-1.60); Monoclonal Spike g/dL 0.3 g/dL (None Seen); Total Protein 6.5 g/dL (6.3-8.2)
== END 2025-01-15 03:28 | disposition home or self-care (01) ==
PROVIDERS: PCP Nurse Practitioner Family; Visit Provider Internal Medicine Hematology & Oncology
DX: D80.1 Nonfamilial hypogammaglobulinemia (principal)
CPT/HCPCS: 36415; 80053; 82784; 83883; 84165; 85025

== ENCOUNTER 2025-01-22 00:17 | Outpatient (CLI) | payer MEDICARE, BC, SELFPAY ==
--- NOTE | 2025-01-22 | DI.US_ITS ---
Exam(s) US BREAST RT LIMITED [facility] BI EXAM: [facility] BI and U/S breast RT limited CLINICAL HISTORY: 2 BREAST NODULES,UNSPEC LUMP IN R BREAST,N63.0 N63.1 TENDER TO TOUCH. TECHNIQUE: Craniocaudal and mediolateral oblique Full Field Digital Mammography views with Computer Aided Diagnosis followed by Tomosynthesis and limited right breast ultrasound. COMPARISON: Comparison is made with prior examinations. FINDINGS: Mammography/Tomosynthesis: Masses/Architectural Distortion: There are no suspicious masses or areas of architectural distortion present. Microcalcifictions: No suspicious pleomorphic-type are seen. Skin Thickening/Nipple Retraction: None. Limited right breast US: The upper inner quadrant of the right breast was evaluated sonographically as indicated by the patient. Echotexture: Normal appearance of the glandular tissue. Shadowing: No suspicious foci. Cyst: None. Solid lesions: None seen. Ductal dilation: None. IMPRESSION: 1. No evidence of malignancy is noted. 2. Unless there is more urgent need, follow-up screening mammography is recommended, as per [place] [employer] guidelines. 3. The findings were discussed with the patient on the date of the examination. BI-RADS Category 1 - Negative Breast Density - Category C - The breast are heterogeneously dense, which may obscure small masses. Breast density Category C or D implies that the patient has dense breast tissue. Dense breast tissue can make it harder to find cancer on a mammogram. Dense breast tissue is also associated with an increased risk of breast cancer. This information about the result of the mammogram report was provided to the patient to raise their awareness. Use this report when you speak with the patient about their risks for breast cancer, which includes their family history. At that time, you may recommend additional screening tests (Ultrasound or MRI) as these tests may add significant information. A negative radiographic report should not delay biopsy if a dominant or clinically suspicious mass is present. Up to ten percent of cancers are not identified on mammography. A negative report may reinforce clinical impression. Adenosis and dense breasts may obscure an underlying neoplasm. False positive reports average 6 to 10%. Patient will receive a letter notifying them of these results.
== END 2025-01-22 00:37 ==
LOC: DI 00:17
PROVIDERS: PCP Nurse Practitioner Family; Visit Provider Nurse Practitioner Family
DX: Z12.31 Encounter for screening mammogram for malignant neoplasm of breast (principal); N63.12 Unspecified lump in the right breast, upper inner quadrant
CPT/HCPCS: 76642; 77062; 77066; G0279

== ENCOUNTER → 2025-02-07 02:05 | Outpatient (CLI) | payer MEDICARE, BC, SELFPAY ==
--- NOTE | 2025-02-07 | DI.DEXA_ITS ---
Exam(s) XR DEXA BONE DENSITY W/WO JESE EXAM: XR DEXA BONE DENSITY W/WO JESE CLINICAL HISTORY: ASYMPTOMATIC POSTMENOPAUSAL STATE,Z78.0 TECHNIQUE: COMPARISON: DX DEXA BONE DENSITY WITH JESE from 02/08/2017 FINDINGS: Lateral Spine Image: Unremarkable. No compression deformities identified. Left hip: Total T-Score: -0.8. This compares to -0.1 on the prior examination. Total Z-Score: 1.0 T- and Z-scores: There is no evidence of osteoporosis. Lumbar Spine: Total T-Score: -1.4. This compares to -1.0 on the prior examination. Total Z-Score: 1.0 T- and Z-scores: Findings are consistent with osteopenia. There is no evidence of osteoporosis. IMPRESSION: No evidence of osteoporosis.
== END ==
LOC: DI 02:05
PROVIDERS: PCP Nurse Practitioner Family; Visit Provider Nurse Practitioner Family
DX: Z78.0 Asymptomatic menopausal state (principal); Z12.31 Encounter for screening mammogram for malignant neoplasm of breast
CPT/HCPCS: 77080